=== PATIENT | male | born 1980 | race Caucasian/White ===

== ENCOUNTER 2017-05-16 12:57 | Emergency (ER) | payer MEDICAID, OTHER ==
--- NOTE | 2017-05-16 13:32 | EDM.PDOC ---
ED HPI GENERAL MEDICAL PROBLEM - General Chief Complaint: Gastrointestinal Problem Stated Complaint: LIGHTHEADED/VOMITING/R ARM IS NUMB Time Seen by Provider: 05/16/17 13:31 Source of Information: Reports: Patient - History of Present Illness INITIAL COMMENTS - FREE TEXT/NARRATIVE: Patient is here today for with his Melissa for evaluation of episode of lightheadedness and vomiting this morning. He states that he [place] completely normal approximately 8 AM when he woke up. States that he did try to eat some chips around 9 AM and felt nauseous and vomited. He does note some occasional right hand pain/numbness as well. He reports that this is been happening intermittently over the last 10 years on approximately 4-5 occasions. He denies any chronic medical conditions, does not take any medications on a daily basis and has no known allergies. He states that he has a soda every now and then, denies any drug use though he does drink approximately a 12 pack of [employer]ors original daily. Patient reports last episode of vomiting was approximately 10:30 AM, he has not had anything to eat or drink since then. He denies any current nausea or any pain. Does feel that he is quite hungry. - Related Data Allergies Allergy/AdvReac Type Severity Reaction Status Date / Time No Known Allergies Allergy Verified 09/27/16 17:04 Home Meds: Home Meds Meclizine [Antivert] 25 mg PO TID PRN #20 tablet 09/27/16 [Rx] Ondansetron [Zofran ODT] 4 mg PO Q8H PRN #20 tab.dis 09/27/16 [Rx] Past Medical History HEENT History: Reports: Impaired Vision - Past Surgical History GI Surgical History: Reports: Appendectomy Musculoskeletal Surgical History: Reports: Other (See Below) Social & Family History - Family History Family Medical History: Noncontributory - Tobacco Use Smoking Status *Q: Current Every Day Smoker Years of Tobacco use: 20 Packs/Tins Daily: 1 - Caffeine Use Caffeine Use: Reports: Coffee, Soda - Alcohol Use Days Per Week of Alcohol Use: 7 Number of Drinks Per Day: 12 Total Drinks Per Week: 84 - Recreational Drug Use Recreational Drug Use: No ED ROS GENERAL - Review of Systems Review Of Systems: See Below Constitutional: Reports: Weakness, Fatigue. Denies: Diaphoresis Respiratory: Reports: No Symptoms, Shortness of Breath, Wheezing, Cough Cardiovascular: Reports: No Symptoms, Chest Pain, Blood Pressure Problem Endocrine: Reports: Fatigue GI/Abdominal: Reports: Nausea, Vomiting. Denies: Abdominal Pain, Constipation, Diarrhea : Reports: No Symptoms Musculoskeletal: Reports: No Symptoms Skin: Reports: No Symptoms Neurological: Reports: Numbness (Right arm), Other Psychiatric: Reports: No Symptoms ED EXAM, GI/ABD - Physical Exam Exam: See Below Exam Limited By: No Limitations General Appearance: Alert, WD/WN, No Apparent Distress Ears: Normal External Exam, Normal Canal, Hearing Grossly Normal, Normal TMs Nose: Normal Inspection, Normal Mucosa Throat/Mouth: Normal Inspection, Normal Oropharynx Head: Atraumatic, Normocephalic Neck: Normal Inspection, Supple, Non-Tender, Full Range of Motion Respiratory/Chest: No Respiratory Distress, Wheezing (Mild scattered diffuse wheezing bilaterally.) Cardiovascular: Normal Peripheral Pulses, Regular Rate, Rhythm, No Edema, No Murmur GI/Abdominal: Normal Bowel Sounds, Soft, Non-Tender Back Exam: Normal Inspection, Full Range of Motion Extremities: Normal Inspection, Normal Range of Motion Neurological: Alert, Oriented, CN II-XII Intact, No Motor/Sensory Deficits Psychiatric: Normal Affect, Normal Mood Skin Exam: Warm, Dry, No Rash Course - Vital Signs Last Recorded V/S: Last Vital Signs Temp 97.7 F 05/16/17 13:06 Pulse 74 05/16/17 13:06 Resp 20 05/16/17 13:06 BP 155/94 H 05/16/17 13:06 Pulse Ox 95 05/16/17 13:06 - Orders/Labs/Meds Orders: Active Orders 24 hr Category Date Time Status CXR [Chest 2V] [CR] Stat Exams 05/16/17 13:53 Taken UA W/MICROSCOPIC [URIN] Stat Lab 05/16/17 15:40 Received Labs: Laboratory Tests 05/16/17 05/16/17 05/16/17 Range/Units 14:25 14:25 14:25 WBC 10.85 H (4.23-9.07) K/mm3 RBC 5.81 (4.63-6.08) M/mm3 Hgb 18.4 H (13.7-17.5) gm/L Hct 52.7 H (40.1-51.0) % MCV 90.7 (79.0-92.2) fl MCH 31.7 (25.7-32.2) pg MCHC 34.9 (32.2-35.5) g/dl RDW Std Deviation 41.8 (35.1-43.9) fL Plt Count 172 (163-337) K/mm3 MPV 9.8 (9.4-12.3) fl Neutrophils % (Manual) 80 H (40-60) % Band Neutrophils % 0 (0-10) % Lymphocytes % (Manual) 16 L (20-40) % Atypical Lymphs % 0 % Monocytes % (Manual) 3 (2-10) % Eosinophils % (Manual) 1 (0.8-7.0) % Basophils % (Manual) 0 L (0.2-1.2) Platelet Estimate Adequate Plt Morphology Comment Normal RBC Morph Comment Normal Sodium 138 (136-145) mEq/L Potassium 4.0 (3.5-5.1) mEq/L Chloride 103 (98-107) mEq/L Carbon Dioxide 25 (21-32) mEq/L Anion Gap 14.0 (5-15) BUN 9 (7-18) mg/dL Creatinine 1.0 (0.7-1.3) mg/dL Est Cr Clr Drug Dosing TNP Estimated GFR (MDRD) > 60 (>60) mL/min BUN/Creatinine Ratio 9.0 L (14-18) Glucose 103 (74-106) mg/dL Calcium 9.0 (8.5-10.1) mg/dL Total Bilirubin 1.7 H (0.2-1.0) mg/dL AST 54 H (15-37) U/L ALT 70 H (16-63) U/L Alkaline Phosphatase 53 (46-116) U/L C-Reactive Protein < 0.2 (<1.0) mg/dL Total Protein 7.7 (6.4-8.2) g/dl Albumin 4.2 (3.4-5.0) g/dl Globulin 3.5 gm/dL Albumin/Globulin Ratio 1.2 (1-2) Lipase 261 (73-393) U/L H. pylori IgG Antibody Negative (NEGATIVE) Meds: Medications Discontinued Medications Generic Name Dose Route Start Last Admin Trade Name Freq PRN Reason Stop Dose Admin Al Hydroxide/Mg Hydroxide 30 0 ml 05/16/17 15:21 05/16/17 15:31 ml/ Lidocaine HCl 15 ml PO 05/16/17 15:22 45 ml ONETIME ONE Administration - Re-Assessments/Exams Free Text/Narrative Re-Assessment/Exam: Patient's hand numbness resolved with exercise and stretching. He noticed mild improvement in his throat fullness and burning with the GI cocktail. He does note the nausea has resolved. He tolerated water well will try onelia crackers. WBC 10,850, hemoglobin elevated at 18.4. He is a smoker. Bilirubin is 1.7, AST 54 ALTs 70. Lipase 261 and CRP <0.2. Chest x-ray was unremarkable, official report is pending. I suspect much of patient's occasional dizziness and esophageal fullness is related to his excessive alcohol consumption. I did discuss with him significantly cutting back or even better to quit drinking alcohol altogether, patient does feel that this is a reasonable goal for him. With the significant fullness in his esophagus and a lot of drinking I do think that EGD is indicated and will schedule him with surgery for this. Will follow-up with him in the clinic 2-3 days after his EGD or certainly sooner if needed. 05/16/17 15:53 Departure - Departure Time of Disposition: 16:38 Disposition: Home, Self-Care 01 Condition: Good Clinical Impression: Dizziness, Excessive drinking alcohol Dysphagia Qualifiers: Dysphagia type: unspecified Qualified Code(s): R13.10 - Dysphagia, unspecified - Discharge Information Instructions: Dehydration, Adult, [id number] Referrals: PCP,None [Primary Care Provider] - Forms: ED Department Discharge Additional Instructions: You need to stop drinking alcohol. Eat balanced diet Call [phone] to schedule your EGD consult with Dr Cowan. Follow-up with Hilary Howell 1 week after procedure. You may return to ER if needed. - My Orders Last 24 Hours: My Active Orders 05/16/17 13:53 CXR [Chest 2V] [CR] Stat 05/16/17 15:40 UA W/MICROSCOPIC [URIN] Stat - Assessment/Plan Last 24 Hours: My Active Orders 05/16/17 13:53 CXR [Chest 2V] [CR] Stat 05/16/17 15:40 UA W/MICROSCOPIC [URIN] Stat
[2017-05-16] MEDS ORDERED: Alum Hydrox/Mag Hydrox/Simeth 30 ML, Lidocaine 2% 15 ML PO ONE ×2 (15:21)
[2017-05-16 16:45] VITALS: BP 143/90
--- NOTE | 2017-05-20 13:35 | CR ---
Chest: 2 views of the chest were obtained. Comparison: Previous chest x-ray of 09/27/16. Heart size and mediastinum are within normal limits. Lungs are clear. Bony structures are unremarkable. Impression: 1. Nothing acute is seen on 2 view chest x-ray. Diagnostic code #1
== END 2017-05-16 16:45 | disposition home or self-care (01) ==
LOC: JD.ED 12:57
DX: R42 Dizziness and giddiness (principal); R13.10 Dysphagia, unspecified; F10.10 Alcohol abuse, uncomplicated; F17.210 Nicotine dependence, cigarettes, uncomplicated; Z90.49 Acquired absence of other specified parts of digestive tract
CPT/HCPCS: 36415; 71020; 80053; 81001; 83690; 85025; 86140; 86677; 99284; A9270; 99283

== ENCOUNTER 2017-10-09 20:51 | Emergency (ER) | payer MEDICAID ==
[2017-10-09] MEDS ORDERED: Sodium Chloride 0.9% 2,000 ML IV ONE (21:22)
[2017-10-09] MEDS ORDERED: Ondansetron 4 MG/2 ML SDV IVPUSH ONE (21:22)
[2017-10-09] MEDS ORDERED: Sodium Chloride 0.9% 10 ML Syringe FLUSH PRN (21:22)
[2017-10-09] MEDS ORDERED: Pantoprazole 40 MG Vial IVPUSH ONE (21:22)
[2017-10-09] MEDS ORDERED: LORazepam 2 MG/ML MDV IVPUSH ONE (21:22)
[2017-10-09] MEDS ORDERED: HYDROmorphone 0.5 MG/0.5 ML Syringe IVPUSH ONE (21:25)
--- NOTE | 2017-10-09 21:28 | EDM.PDOC ---
ED HPI GENERAL MEDICAL PROBLEM - General Chief Complaint: Gastrointestinal Problem Stated Complaint: VOMITING Time Seen by Provider: 10/09/17 21:10 Source of Information: Reports: Patient History Limitations: Reports: No Limitations - History of Present Illness INITIAL COMMENTS - FREE TEXT/NARRATIVE: Patient is a 36-year-old male who presents to the ED complaining of nausea/ vomiting, dizziness, weakness, and pain to his epigastric region. Patient states he awoke this morning with sudden onset of vomiting approximately 7:00. States the vomiting and abdominal discomfort have progressively gotten worse throughout the course of the day. He has been unable to eat any food although has been trying to drink plenty of water. States at approximately 1500 hrs. today he was feeling better. Approximately half-hour prior to arrival to the ED he started feeling bad again. He is feeling lightheaded with admission to the ED. Stomach discomfort described as a dull achy constant sensation that is localized. Patient does smoke one pack per day plus. Complains of some intermittent cough and chest tightness with expiratory wheezing present. Denies any acid reflux, fever/chills, diarrhea, chest pain, shortness of breath, sore throat, or recent sick contacts. States this happens about three times a year. Denies history of bleeding ulcers, blood in his stool, and or pancreatitis. He does admit to drinking 8-10 beers a day. Denies any recreational drug use. - Related Data Allergies Allergy/AdvReac Type Severity Reaction Status Date / Time No Known Allergies Allergy Verified 10/09/17 21:00 Home Meds: Home Meds Ondansetron [Zofran ODT] 4 mg PO Q6H PRN #10 tab.dis 10/09/17 [Rx] Propranolol [Inderal LA] 60 mg PO DAILY #10 cap.er 10/09/17 [Rx] chlordiazePOXIDE [Librium] 25 mg PO ASDIRECTED #18 cap 10/09/17 [Rx] Past Medical History HEENT History: Reports: Impaired Vision - Past Surgical History GI Surgical History: Reports: Appendectomy Social & Family History - Family History Family Medical History: Noncontributory - Tobacco Use Smoking Status *Q: Current Every Day Smoker Years of Tobacco use: 15 Packs/Tins Daily: 1 - Caffeine Use Caffeine Use: Reports: Coffee, Soda - Alcohol Use Days Per Week of Alcohol Use: 7 Number of Drinks Per Day: 12 Total Drinks Per Week: 84 - Recreational Drug Use Recreational Drug Use: No ED ROS GENERAL - Review of Systems Review Of Systems: ROS reveals no pertinent complaints other than HPI. ED EXAM, GI/ABD - Physical Exam Exam: See Below Exam Limited By: No Limitations General Appearance: Alert, WD/WN, Mild Distress Ears: Hearing Grossly Normal Nose: Normal Inspection Throat/Mouth: Normal Voice, No Airway Compromise, Other (Dry oromucosa) Neck: Normal Inspection, Supple Respiratory/Chest: No Respiratory Distress, No Accessory Muscle Use, Chest Non- Tender, Other (Few expiratory wheezes to the apices) Cardiovascular: Normal Peripheral Pulses, Regular Rate, Rhythm, No Murmur GI/Abdominal Exam: Normal Bowel Sounds, Soft, No Organomegaly, No Distention, Tender (Mild tenderness noted epigastric region) Back Exam: Normal Inspection. No: CVA Tenderness (L), CVA Tenderness (R) Extremities: Normal Inspection, Non-Tender, No Pedal Edema, Normal Capillary Refill Neurological: Alert, Oriented, CN II-XII Intact, No Motor/Sensory Deficits Psychiatric: Normal Affect, Anxious Skin Exam: Warm, Dry, Intact, Normal Color, No Rash Course - Vital Signs Last Recorded V/S: Last Vital Signs Temp 98.7 F 10/09/17 20:57 Pulse 57 L 10/09/17 23:40 Resp 16 10/09/17 23:40 BP 142/76 H 10/09/17 23:40 Pulse Ox 98 10/09/17 23:40 - Orders/Labs/Meds Labs: Laboratory Tests 10/09/17 10/09/17 10/09/17 Range/Units 21:35 21:35 21:35 WBC 8.50 (4.23-9.07) K/mm3 RBC 5.72 (4.63-6.08) M/mm3 Hgb 18.0 H (13.7-17.5) gm/L Hct 50.1 (40.1-51.0) % MCV 87.6 (79.0-92.2) fl MCH 31.5 (25.7-32.2) pg MCHC 35.9 H (32.2-35.5) g/dl RDW Std Deviation 38.8 (35.1-43.9) fL Plt Count 197 (163-337) K/mm3 MPV 9.8 (9.4-12.3) fl Neut % (Auto) 58.8 (34.0-67.9) % Lymph % (Auto) 25.2 (21.8-53.1) % [place] % (Auto) 14.9 H (5.3-12.2) % Eos % (Auto) 0.9 (0.8-7.0) Baso % (Auto) 0.1 (0.1-1.2) % Neut # (Auto) 4.99 (1.78-5.38) K/mm3 Lymph # (Auto) 2.14 (1.32-3.57) K/mm3 [place] # (Auto) 1.27 H (0.30-0.82) K/mm3 Eos # (Auto) 0.08 (0.04-0.54) K/mm3 Baso # (Auto) 0.01 (0.01-0.08) K/mm3 PT 10.6 (8.0-13.0) SECONDS INR 0.97 Sodium 136 (136-145) mEq/L Potassium 3.4 L (3.5-5.1) mEq/L Chloride 97 L (98-107) mEq/L Carbon Dioxide 27 (21-32) mEq/L Anion Gap 15.4 H (5-15) BUN 9 (7-18) mg/dL Creatinine 1.0 (0.7-1.3) mg/dL Est Cr Clr Drug Dosing 99.22 mL/min Estimated GFR (MDRD) > 60 (>60) mL/min BUN/Creatinine Ratio 9.0 L (14-18) Glucose 104 (74-106) mg/dL Calcium 10.2 H (8.5-10.1) mg/dL Total Bilirubin 1.8 H (0.2-1.0) mg/dL AST 30 (15-37) U/L ALT 43 (16-63) U/L Alkaline Phosphatase 47 (46-116) U/L C-Reactive Protein < 0.5 (<1.0) mg/dL Total Protein 7.7 (6.4-8.2) g/dl Albumin 4.3 (3.4-5.0) g/dl Globulin 3.4 gm/dL Albumin/Globulin Ratio 1.3 (1-2) Lipase 195 (73-393) U/L TSH 3rd Generation 7.217 H (0.358-3.74) uIU/mL Urine Color (Yellow) Urine Appearance (Clear) Urine pH (5.0-8.0) Ur Specific [place] (1.005-1.030) Urine Protein (Negative) Urine Glucose (UA) (Negative) Urine Ketones (Negative) Urine Occult Blood (Negative) Urine Nitrite (Negative) Urine Bilirubin (Negative) Urine Urobilinogen (0.2-1.0) Ur Leukocyte Esterase (Negative) Urine RBC (0-5) /hpf Urine WBC (0-5) /hpf Ur Epithelial Cells (0-5) /hpf Urine Bacteria (FEW) /hpf Urine Mucus (FEW) /hpf Urine Opiates Screen (NEGATIVE) Ur Buprenorphine Scrn (NEGATIVE) Ur Oxycodone Screen (NEGATIVE) Urine Methadone Screen (NEGATIVE) Ur Propoxyphene Screen (NEGATIVE) Ur Barbiturates Screen (NEGATIVE) Ur Tricyclics Screen (NEGATIVE) Ur Phencyclidine Scrn (NEGATIVE) Ur Amphetamine Screen (NEGATIVE) U Methamphetamines Scrn (NEGATIVE) U Benzodiazepines Scrn (NEGATIVE) U Cocaine Metab Screen (NEGATIVE) U Marijuana (THC) Screen (NEGATIVE) Ethyl Alcohol 0.00 (0.00) gm% 10/09/17 10/09/17 Range/Units 21:48 21:48 WBC (4.23-9.07) K/mm3 RBC (4.63-6.08) M/mm3 Hgb (13.7-17.5) gm/L Hct (40.1-51.0) % MCV (79.0-92.2) fl MCH (25.7-32.2) pg MCHC (32.2-35.5) g/dl RDW Std Deviation (35.1-43.9) fL Plt Count (163-337) K/mm3 MPV (9.4-12.3) fl Neut % (Auto) (34.0-67.9) % Lymph % (Auto) (21.8-53.1) % [place] % (Auto) (5.3-12.2) % Eos % (Auto) (0.8-7.0) Baso % (Auto) (0.1-1.2) % Neut # (Auto) (1.78-5.38) K/mm3 Lymph # (Auto) (1.32-3.57) K/mm3 [place] # (Auto) (0.30-0.82) K/mm3 Eos # (Auto) (0.04-0.54) K/mm3 Baso # (Auto) (0.01-0.08) K/mm3 PT (8.0-13.0) SECONDS INR Sodium (136-145) mEq/L Potassium (3.5-5.1) mEq/L Chloride (98-107) mEq/L Carbon Dioxide (21-32) mEq/L Anion Gap (5-15) BUN (7-18) mg/dL Creatinine (0.7-1.3) mg/dL Est Cr Clr Drug Dosing mL/min Estimated GFR (MDRD) (>60) mL/min BUN/Creatinine Ratio (14-18) Glucose (74-106) mg/dL Calcium (8.5-10.1) mg/dL Total Bilirubin (0.2-1.0) mg/dL AST (15-37) U/L ALT (16-63) U/L Alkaline Phosphatase (46-116) U/L C-Reactive Protein (<1.0) mg/dL Total Protein (6.4-8.2) g/dl Albumin (3.4-5.0) g/dl Globulin gm/dL Albumin/Globulin Ratio (1-2) Lipase (73-393) U/L TSH 3rd Generation (0.358-3.74) uIU/mL Urine Color Yellow (Yellow) Urine Appearance Clear (Clear) Urine pH 6.5 (5.0-8.0) Ur Specific [place] [address] [place] 1.010 (1.005-1.030) Urine Protein Negative (Negative) Urine Glucose (UA) Negative (Negative) Urine Ketones Negative (Negative) Urine Occult Blood Negative (Negative) Urine Nitrite Negative (Negative) Urine Bilirubin Negative (Negative) Urine Urobilinogen 0.2 (0.2-1.0) Ur Leukocyte Esterase Negative (Negative) Urine RBC 0-5 (0-5) /hpf Urine WBC 0-5 (0-5) /hpf Ur Epithelial Cells 0-5 (0-5) /hpf Urine Bacteria Not seen (FEW) /hpf Urine Mucus Not seen (FEW) /hpf Urine Opiates Screen Negative (NEGATIVE) Ur Buprenorphine Scrn Negative (NEGATIVE) Ur Oxycodone Screen Negative (NEGATIVE) Urine Methadone Screen Negative (NEGATIVE) Ur Propoxyphene Screen Negative (NEGATIVE) Ur Barbiturates Screen Negative (NEGATIVE) Ur Tricyclics Screen Negative (NEGATIVE) Ur Phencyclidine Scrn Negative (NEGATIVE) Ur Amphetamine Screen Negative (NEGATIVE) U Methamphetamines Scrn Negative (NEGATIVE) U Benzodiazepines Scrn Negative (NEGATIVE) U Cocaine Metab Screen Negative (NEGATIVE) U Marijuana (THC) Screen Negative (NEGATIVE) Ethyl Alcohol (0.00) gm% Meds: Medications Discontinued Medications Generic Name Dose Route Start Last Admin Trade Name Freq PRN Reason Stop Dose Admin Hydromorphone HCl 0.5 mg 10/09/17 21:25 10/09/17 21:47 Dilaudid IVPUSH 10/09/17 21:26 0.5 mg ONETIME ONE Administration Sodium Chloride 2,000 mls @ 999 mls/hr 10/09/17 21:22 10/09/17 21:47 Normal Saline IV 10/09/17 23:22 999 mls/hr ONETIME ONE Administration Lorazepam 1 mg 10/09/17 21:22 10/09/17 21:47 Ativan IVPUSH 10/09/17 21:23 1 mg ONETIME ONE Administration Metoclopramide HCl 7.5 mg 10/09/17 22:28 10/09/17 22:38 Reglan IVPUSH 10/09/17 22:29 7.5 mg ONETIME ONE Administration Ondansetron HCl 4 mg 10/09/17 21:22 10/09/17 21:47 Zofran IVPUSH 10/09/17 21:23 4 mg ONETIME ONE Administration Pantoprazole Sodium 40 mg 10/09/17 21:22 10/09/17 21:47 Protonix Iv IVPUSH 10/09/17 21:23 40 mg ONETIME ONE Administration Sodium Chloride 10 ml 10/09/17 21:22 10/09/17 21:46 Saline Flush FLUSH 10 ml ASDIRECTED PRN Administration Keep Vein Open - Re-Assessments/Exams Free Text/Narrative Re-Assessment/Exam: IV established with Ativan 1 mg IVP, Zofran 4 mg IVP, Protonix 40 mg IVP, Dilaudid 0.5 mg IVP, and normal saline 2000 mL total. Initial labs and studies include CBC, chem 14, CRP, urine drug tox, serum EtOH, PT/INR, lipase, TSH, and UA. EKG, chest x-ray, and abdominal 2 view will be obtained as well. EKG: Sinus rhythm rate of 56 with possible LVH. No acute ST changes noted. Labs reviewed: CBC essentially normal. INR 0.97. Sodium 136, potassium 3.4 AG 13.4, creatinine 1.0, glucose 104, LFTs within normal limits, CRP less than 0.5 , lipase 195, TSH elevated at 7.217. Serum EtOH 0.00. Chest x-ray no acute abnormality is noted. Reviewed with Dr. Rivera. Final interpretation pending. X-ray of the abdomen revealed nonspecific air in stool pattern with questionable few air-fluid levels no sign of obstruction. Reviewed with Dr. Rivera. Final interpretation pending. 2220 reassessment, patient's pain resolved after ministered the Dilaudid. Subsequently shortly after receiving the Dilaudid patient became nauseated and vomited. UA was negative for any concerning findings. Urine drug tox was negative. Ordered Reglan 7.5 mg IVP for persistent nausea. 2300 Reassessment, vital signs are stable. Patients nausea is subsiding. Dizziness persists but improving. Once IV fluids are in will prepare for discharge home. Discussed patient with Dr. Perez he will take over care since I will be leaving. Believe symptoms maybe associated with alcohol induced gastritis vs gastrointenstinal viral infection vs alcohol withdraw. Patients symptoms have resolved with the above therapies.Patient is wishing to have medications to help with withdraw from alcohol. He wants help with alcohol abuse. Thus will prescribe appropriate medication for alcohol withdraw with referral information for PCP and treatment options. Departure - Departure Time of Disposition: 23:40 Disposition: Home, Self-Care 01 Condition: Fair Clinical Impression: Vomiting, Abdominal pain, Elevated TSH Gastritis Qualifiers: Gastritis type: unspecified gastritis Chronicity: acute Gastritis bleeding: without bleeding Qualified Code(s): K29.00 - Acute gastritis without bleeding - Discharge Information Prescriptions: chlordiazePOXIDE [Librium] 25 mg PO ASDIRECTED #18 cap Ondansetron [Zofran ODT] 4 mg PO Q6H PRN #10 tab.dis PRN Reason: Nausea/Vomiting Propranolol [Inderal LA] 60 mg PO DAILY #10 cap.er Instructions: Viral Gastroenteritis, Adult, [id number], Nausea and Vomiting, Adult, [id number], Abdominal Pain, Adult, [id number] Referrals: Merly Osborn [Physician] - [facility] [Outside] Ramu Dickens LAC [Licensed Counselor] - Forms: ED Department Discharge, ED Return to Work/School Form Additional Instructions: As discussed discomfort may be associated with alcohol-induced gastritis, alcohol withdraw, and/or viral gastrointestinal infection. Treatment at this point will include Zofran 4 mg every 6 hours as needed for nausea and vomiting. Prilosec 40mg every am 1/2 hr prior to eating for two weeks and then 20mg everyday thereafter for 1 month. Push the fluids including: Gatorade, Powerade, and/orwater. Stick with liquid diet for the next 24 hours advancing to a bland diet thereafter for the next 2 days. If able to keep food down advance to normal diet. Refrain from alcohol use. For alcohol withdraws will have you take librium and inderal as prescribed. Follow-up with a primary care provider at [facility] in [place] for reevaluation if symptoms persist. Seek alcohol treatment with Ramu Dickens or [facility]. No driving this evening since receiving a sedative medication while in the E.D. TSH was also elevated which is concerning for hypothyroidism. Please follow up with PCP for further diagnostic testing.
[2017-10-09] MEDS ORDERED: Metoclopramide 10 MG/2 ML SDV IVPUSH ONE (22:28)
[2017-10-09 23:41] VITALS: BP 142/76
--- NOTE | 2017-10-10 06:46 | CR ---
Abdominal series: Supine and upright views of the abdomen were obtained as well as frontal view of the chest. Comparison: Prior chest x-ray of 05/16/17. Heart size and mediastinum are within normal limits. Lungs are clear with no acute infiltrates. Calcifications are seen within the pelvis compatible with phleboliths. Anastomotic sutures are seen within the right abdomen. Bowel gas pattern is normal. No free air is seen. Impression: 1. Incidental findings. Nothing acute is identified on abdominal ultrasound exam. Diagnostic code #1
== END 2017-10-09 23:40 | disposition home or self-care (01) ==
LOC: JD.ED 20:51
DX: K29.00 Acute gastritis without bleeding (principal); R94.6 Abnormal results of thyroid function studies; F17.210 Nicotine dependence, cigarettes, uncomplicated; Z79.899 Other long term (current) drug therapy
CPT/HCPCS: 36415; 74022; 80053; 80306; 81001; 83690; 84443; 85025; 85610; 86140; 93005; 96361; 96374; 96375; 99284; C9113; G0480; J1170; J2060; J2405; J2765; J7040; J7050; 93010; 99285

== ENCOUNTER 2017-10-28 22:59 | Emergency (ER) | payer MEDICAID ==
[2017-10-28 23:10] VITALS: BP 142/95
[2017-10-28] MEDS ORDERED: Sodium Chloride 0.9% 10 ML Syringe FLUSH PRN (23:41)
[2017-10-28] MEDS ORDERED: Metoclopramide 10 MG/2 ML SDV IVPUSH ONE (23:42)
[2017-10-28] MEDS ORDERED: Ketorolac 30 MG/ML SDV IVPUSH ONE (23:43)
[2017-10-28] MEDS ORDERED: diphenhydrAMINE 50 MG/ML SDV IVPUSH ONE (23:43)
[2017-10-28] MEDS ORDERED: Sodium Chloride 0.9% 1,000 ML IV SCH (23:45)
[2017-10-29] MEDS ORDERED: Acetaminophen/HYDROcodone 325-5 MG Tab PO ONE (01:42)
--- NOTE | 2017-10-29 01:45 | EDM.PDOC ---
ED HPI GENERAL MEDICAL PROBLEM - General Chief Complaint: Headache Stated Complaint: dizzy headache Time Seen by Provider: 10/28/17 23:35 Source of Information: Reports: Patient History Limitations: Reports: No Limitations - History of Present Illness INITIAL COMMENTS - FREE TEXT/NARRATIVE: The patient presents with a headache. This started yesterday. It comes form his neck. He is also lightheaded. This has happened many times. He has been seen here before. They only thing that came back abnormal was his TSH. It always has been elevated. It was 7 last time. He denies fever, chills, cough, chest pain, shortness of breath, numbness or weakness. He did have some nausea earlier. He took some aspirin but that did not help. He usually does not have a headache when he gets lightheaded. That is why he came in. Onset: Gradual Duration: Day(s): (Yesterday) Location: Reports: Head Quality: Reports: Ache Severity: Moderate Improves with: Reports: None Worsens with: Reports: None Associated Symptoms: Reports: Headaches, Nausea/Vomiting. Denies: Chest Pain, Fever/Chills, Loss of Appetite, Shortness of Breath Headache Pain Score (Numeric/FACES): 6 - Related Data Allergies Allergy/AdvReac Type Severity Reaction Status Date / Time hydromorphone [From Dilaudid] Allergy Vomiting Verified 10/28/17 23:11 Home Meds: Home Meds . [No Known Home Meds] 10/28/17 [History] Past Medical History HEENT History: Reports: Impaired Vision Psychiatric History: Reports: Anxiety - Infectious Disease History Infectious Disease History: Reports: Chicken Pox - Past Surgical History GI Surgical History: Reports: Appendectomy Musculoskeletal Surgical History: Reports: Other (See Below) Other Musculoskeletal Surgeries/Procedures:: right ankle Social & Family History - Family History Family Medical History: Noncontributory - Tobacco Use Smoking Status *Q: Former Smoker Years of Tobacco use: 20 Packs/Tins Daily: 1 Used Tobacco, but Quit: No - Caffeine Use Caffeine Use: Reports: None - Alcohol Use Days Per Week of Alcohol Use: 7 Number of Drinks Per Day: 12 Total Drinks Per Week: 84 - Recreational Drug Use Recreational Drug Use: No ED ROS GENERAL - Review of Systems Review Of Systems: See Below Constitutional: Reports: No Symptoms HEENT: Reports: No Symptoms Respiratory: Reports: No Symptoms Cardiovascular: Reports: Lightheadedness. Denies: Chest Pain Endocrine: Reports: No Symptoms GI/Abdominal: Reports: Nausea. Denies: Abdominal Pain, Vomiting : Reports: No Symptoms Musculoskeletal: Reports: Neck Pain Skin: Reports: No Symptoms Neurological: Reports: Headache - Physical Exam Exam: See Below Exam Limited By: No Limitations General Appearance: Alert, No Apparent Distress Eye Exam: Bilateral Eye: EOMI, PERRL Ears: Normal External Exam Nose: Normal Inspection Throat/Mouth: Normal Inspection Head Exam: Atraumatic, Normocephalic Neck: Normal Inspection Respiratory/Chest: No Respiratory Distress, Lungs Clear, Normal Breath Sounds Cardiovascular: Regular Rate, Rhythm, No Edema, No Murmur GI/Abdominal: Soft, Non-Tender, No Organomegaly, No Mass Neuro Exam (Abbreviated): Alert, Oriented, No Motor/Sensory Deficits EKG INTERPRETATION EKG Date: 10/28/17 Time: 23:52 Rhythm: Other (Sinus bradycardia) Rate (Beats/Min): 49 [place]: Normal P-Wave: Present QRS: Normal ST-T: Normal QT: Normal Course - Vital Signs Last Recorded V/S: Last Vital Signs Temp 97.6 F 10/28/17 23:07 Pulse 55 L 10/28/17 23:07 Resp 18 10/28/17 23:07 BP 142/95 H 10/28/17 23:07 Pulse Ox 98 10/28/17 23:07 - Orders/Labs/Meds Orders: Active Orders 24 hr Category Date Time Status Cardiac Monitoring [RC] . DIRECTED Care 10/28/17 23:41 Active EKG Documentation Completion [RC] STAT Care 10/28/17 23:41 Active Holter Monitor 48 Hours [RC] .PRN Care 10/29/17 01:39 Ordered Peripheral IV Care [RC] . DIRECTED Care 10/28/17 23:41 Active Head wo Cont [CT] Stat Exams 10/28/17 23:42 Taken FREE T3 [REF] Stat Lab 10/28/17 23:54 Received Sodium Chloride 0.9% [Normal Saline] 1,000 ml Med 10/28/17 23:45 Active IV ASDIRECTED Sodium Chloride 0.9% [Saline Flush] Med 10/28/17 23:41 Active 10 ml FLUSH ASDIRECTED PRN Peripheral IV Insertion Adult [OM.PC] Stat Oth 12/24/17 23:41 Ordered Medication Orders Sodium Chloride (Normal Saline) 1,000 mls @ 125 mls/hr IV ASDIRECTED MARY ANN Last Admin: 10/28/17 23:55 Dose: 125 mls/hr Sodium Chloride (Saline Flush) 10 ml FLUSH ASDIRECTED PRN PRN Reason: Keep Vein Open Last Admin: 10/28/17 23:55 Dose: 10 ml Labs: Laboratory Tests 10/28/17 10/28/17 Range/Units 23:54 23:54 WBC 8.83 (4.23-9.07) K/mm3 RBC 5.16 (4.63-6.08) M/mm3 Hgb 15.9 (13.7-17.5) gm/L Hct 46.1 (40.1-51.0) % MCV 89.3 (79.0-92.2) fl MCH 30.8 (25.7-32.2) pg MCHC 34.5 (32.2-35.5) g/dl RDW Std Deviation 39.3 (35.1-43.9) fL Plt Count 166 (163-337) K/mm3 MPV 10.1 (9.4-12.3) fl Neut % (Auto) 49.8 (34.0-67.9) % Lymph % (Auto) 35.9 (21.8-53.1) % Kerr % (Auto) 12.1 (5.3-12.2) % Eos % (Auto) 2.0 (0.8-7.0) Baso % (Auto) 0.1 (0.1-1.2) % Neut # (Auto) 4.39 (1.78-5.38) K/mm3 Lymph # (Auto) 3.17 (1.32-3.57) K/mm3 Kerr # (Auto) 1.07 H (0.30-0.82) K/mm3 Eos # (Auto) 0.18 (0.04-0.54) K/mm3 Baso # (Auto) 0.01 (0.01-0.08) K/mm3 Sodium 138 (136-145) mEq/L Potassium 3.4 L (3.5-5.1) mEq/L Chloride 100 (98-107) mEq/L Carbon Dioxide 28 (21-32) mEq/L Anion Gap 13.4 (5-15) BUN 9 (7-18) mg/dL Creatinine 1.0 (0.7-1.3) mg/dL Est Cr Clr Drug Dosing 98.28 mL/min Estimated GFR (MDRD) > 60 (>60) mL/min BUN/Creatinine Ratio 9.0 L (14-18) Glucose 90 (74-106) mg/dL Calcium 9.3 (8.5-10.1) mg/dL Magnesium 1.9 (1.8-2.4) mg/dl Total Bilirubin 1.7 H (0.2-1.0) mg/dL AST 26 (15-37) U/L ALT 36 (16-63) U/L Alkaline Phosphatase 45 L (46-116) U/L Troponin I < 0.017 (0.00-0.056) ng/mL Total Protein 6.9 (6.4-8.2) g/dl Albumin 3.8 (3.4-5.0) g/dl Globulin 3.1 gm/dL Albumin/Globulin Ratio 1.2 (1-2) Free T4 0.95 (0.76-1.46) ng/dL TSH 3rd Generation 5.116 H (0.358-3.74) uIU/mL Meds: Medications Generic Name Dose Route Start Last Admin Trade Name Freq PRN Reason Stop Dose Admin Sodium Chloride 1,000 mls @ 125 mls/hr 10/28/17 23:45 10/28/17 23:55 Normal Saline IV 125 mls/hr ASDIRECTED MARY ANN Administration Sodium Chloride 10 ml 10/28/17 23:41 10/28/17 23:55 Saline Flush FLUSH 10 ml ASDIRECTED PRN Administration Keep Vein Open Discontinued Medications Generic Name Dose Route Start Last Admin Trade Name Freq PRN Reason Stop Dose Admin Diphenhydramine HCl 50 mg 10/28/17 23:43 10/28/17 23:56 Benadryl IVPUSH 10/28/17 23:44 50 mg ONETIME ONE Administration Ketorolac Tromethamine 30 mg 10/28/17 23:43 10/28/17 23:58 Toradol IVPUSH 10/28/17 23:44 30 mg ONETIME ONE Administration Metoclopramide HCl 10 mg 10/28/17 23:42 10/28/17 23:55 Reglan IVPUSH 10/28/17 23:43 10 mg ONETIME ONE Administration - Re-Assessments/Exams Free Text/Narrative Re-Assessment/Exam: 10/29/17 01:45 I ordered an IV NS, toradol 30mg IV, benadryl 50mg IV, reglan 10mg IV, labs, EKG and a CT of his head. His CT shows nothing acute. His EKG shows a sinus bradycardia. His CBC and CMP look good. His troponin is negative. His TSH was elevated at 5.11. His free T4 was normal. His headache is better but not gone. I will give him a couple hydrocodone here and get him a holter monitor. His T4 was normal. I will have him follow up with his doctor about his thyroid. Departure - Departure Time of Disposition: 01:50 Disposition: Home, Self-Care 01 Condition: Good Clinical Impression: Elevated TSH, Lightheaded Headache Qualifiers: Headache type: tension-type Headache chronicity pattern: acute headache Intractability: not intractable Qualified Code(s): G44.209 - Tension-type headache, unspecified, not intractable - Discharge Information Referrals: PCP,None [Primary Care Provider] - Merly Osborn [Physician] - 1 Week Additional Instructions: Wear the holter monitor for 2 days. Get some rest today. Follow up with Dr Osborn in 1 week. Your TSH or thyroid stimulating hormone was up. That could be an indicator of low thyroid. Please return if you are worse. - My Orders Last 24 Hours: My Active Orders 10/28/17 23:41 Cardiac Monitoring [RC] . DIRECTED EKG Documentation Completion [RC] STAT Peripheral IV Care [RC] . DIRECTED Sodium Chloride 0.9% [Saline Flush] 10 ml FLUSH ASDIRECTED PRN Peripheral IV Insertion Adult [OM.PC] Stat 10/28/17 23:42 Head wo Cont [CT] Stat 10/28/17 23:45 Sodium Chloride 0.9% [Normal Saline] 1,000 ml IV ASDIRECTED 10/28/17 23:54 FREE T3 [REF] Stat 10/29/17 01:39 Holter Monitor 48 Hours [RC] .PRN - Assessment/Plan Last 24 Hours: My Active Orders 10/28/17 23:41 Cardiac Monitoring [RC] . DIRECTED EKG Documentation Completion [RC] STAT Peripheral IV Care [RC] . DIRECTED Sodium Chloride 0.9% [Saline Flush] 10 ml FLUSH ASDIRECTED PRN Peripheral IV Insertion Adult [OM.PC] Stat 10/28/17 23:42 Head wo Cont [CT] Stat 10/28/17 23:45 Sodium Chloride 0.9% [Normal Saline] 1,000 ml IV ASDIRECTED 10/28/17 23:54 FREE T3 [REF] Stat 10/29/17 01:39 Holter Monitor 48 Hours [RC] .PRN
--- NOTE | 2017-10-30 07:59 | CT ---
Head CT Technique: Multiple axial sections through the brain were obtained. Intravenous contrast was not utilized. Comparison: No previous intracranial imaging. Findings: Ventricles along with basal cisterns and sulci over the convexities are within normal limits for the patient's age. No abnormal parenchymal densities are seen. No evidence of intracranial hemorrhage. No midline shift or mass effect is seen. Bone window settings were reviewed which show no acute calvarial abnormality. Rounded soft tissue density is identified within the sphenoid sinus which measures approximately 1.8 cm which is felt compatible with incidental retention cyst. Impression: 1. No acute intracranial abnormality is seen. 2. Incidental retention cyst within the right sphenoid sinus. 3. No acute calvarial abnormality is identified. Diagnostic code #2 I agree with preliminary report issued by [facility] ([facility] report finalized on 10/29/17, 1:12 AM Central Time)
== END 2017-10-29 02:11 | disposition home or self-care (01) ==
LOC: JD.ED 22:59
DX: G44.209 Tension-type headache, unspecified, not intractable (principal); R94.6 Abnormal results of thyroid function studies; Z88.5 Allergy status to narcotic agent; Z87.891 Personal history of nicotine dependence
CPT/HCPCS: 36415; 70450; 80053; 83735; 84439; 84443; 84481; 84484; 85025; 93005; 93225; 93226; 96361; 96374; 96375; 99284; A9270; J1200; J1885; J2765; J7040; J7050; 93010

== ENCOUNTER 2017-12-05 22:24 | Observation (INO) | payer MEDICAID ==
[2017-12-05] MEDS ORDERED: Sodium Chloride 0.9% 10 ML Syringe FLUSH PRN (22:49)
[2017-12-05] MEDS ORDERED: Sodium Chloride 0.9% 1,000 ML IV SCH (23:00)
--- NOTE | 2017-12-05 23:00 | EDM.PDOCBH ---
ED HPI GENERAL MEDICAL PROBLEM - General Chief Complaint: Drug or Alcohol Abuse Stated Complaint: DETOX Time Seen by Provider: 12/05/17 22:47 Source of Information: Reports: Patient, Family, RN Notes Reviewed - History of Present Illness INITIAL COMMENTS - FREE TEXT/NARRATIVE: 37-year-old male has been brought in by spouse and other family members looking for help to help him stop drinking. He does have long-standing history of alcohol abuse and dependency. He lost his regular job about 2 years ago since that time he has gone from drinking after work to drinking throughout the day. He started drinking this morning around 6:30 AM which should be about 16 hours ago. He does drink about a case of beer daily with his last beer about one hour ago. He has had some difficulty with pancreatitis about 2 months ago but apparently that is not giving him much trouble right now. He states he does occasionally get sick with nausea vomiting but has not had that in the last day or 2 at least. At this time he is willing to get into some type of treatment program. His family does not believe this can be outpatient. They state that if he is home he will drink. He does drink for the most part every day. He states like he did go a couple of days without drinking back in October about a month ago but then did start right back up again. He denies blackouts, DTs or withdrawal seizures but then it also sounds like he has not really stopped drinking long enough to have those symptoms. - Related Data Allergies Allergy/AdvReac Type Severity Reaction Status Date / Time hydromorphone [From Dilaudid] Allergy Vomiting Verified 12/06/17 02:44 Home Meds: Home Meds . [No Known Home Meds] 10/28/17 [History] Past Medical History HEENT History: Reports: Impaired Vision Cardiovascular History: Reports: Hypertension Psychiatric History: Reports: Addiction, Anxiety - Infectious Disease History Infectious Disease History: Reports: Chicken Pox - Past Surgical History GI Surgical History: Reports: Appendectomy Musculoskeletal Surgical History: Reports: Other (See Below) Other Musculoskeletal Surgeries/Procedures:: right ankle Social & Family History - Family History Family Medical History: Noncontributory - Tobacco Use Smoking Status *Q: Current Every Day Smoker Years of Tobacco use: 20 Packs/Tins Daily: 1.5 Used Tobacco, but Quit: No - Caffeine Use Caffeine Use: Reports: None - Alcohol Use Days Per Week of Alcohol Use: 7 Number of Drinks Per Day: 24 Total Drinks Per Week: 168 Date of Last Drink: 12/05/17 Time of Last Drink: 21:00 - Recreational Drug Use Recreational Drug Use: No ED ROS GENERAL - Review of Systems Review Of Systems: See Below Constitutional: Reports: Decreased Appetite. Denies: Fever, Chills HEENT: Denies: Throat Pain Respiratory: Denies: Shortness of Breath, Wheezing, Pleuritic Chest Pain Cardiovascular: Denies: Chest Pain GI/Abdominal: Reports: Vomiting (Occasional vomiting but none yesterday or today ). Denies: Abdominal Pain (No abdominal pain at this time), Nausea Musculoskeletal: Reports: No Symptoms Skin: Reports: No Symptoms Neurological: Reports: Dizziness. Denies: Trouble Speaking ED EXAM, BEHAVIORAL HEALTH - Physical Exam Exam: See Below General Appearance: Alert, No Apparent Distress Throat/Mouth: Normal Inspection Head: No: Facial Swelling Neck: Supple, Full Range of Motion Respiratory/Chest: No Respiratory Distress, Lungs Clear, Normal Breath Sounds Cardiovascular: Regular Rate, Rhythm GI/Abdominal: Soft, Non-Tender. No: Guarding Back Exam: No: CVA Tenderness (L), CVA Tenderness (R) Extremities: Normal Inspection, Normal Range of Motion Neurological: Alert, Other (At least moderately intoxicated, cooperative with exam, answering questions appropriately) Psychiatric: Alert COURSE, BEHAVIORAL HEALTH COMP - Course Vital Signs: Last Vital Signs Temp 98.4 F 12/05/17 22:35 Pulse 95 12/05/17 22:35 Resp 12 12/05/17 22:35 BP 165/92 H 12/05/17 22:35 Pulse Ox 96 12/05/17 22:35 Orders, Labs, Meds: Active Orders 24 hr Category Date Time Status Peripheral IV Care [RC] Q2HR Care 12/05/17 22:49 Active Sodium Chloride 0.9% [Normal Saline] 1,000 ml Med 12/05/17 23:00 Active IV ONETIME Sodium Chloride 0.9% [Normal Saline] 1,000 ml Med 12/06/17 01:30 Active IV ONETIME Sodium Chloride 0.9% [Saline Flush] Med 12/05/17 22:49 Active 10 ml FLUSH ASDIRECTED PRN Peripheral IV Insertion Adult [OM.PC] Stat Oth 12/05/17 22:48 Ordered Medication Orders Albuterol/Ipratropium (Duoneb 3.0-0.5 Mg/3 Ml) 3 ml NEB Q4H PRN PRN Reason: Shortness Of Breath/wheezing Bisacodyl (Dulcolax) 5 mg PO DAILY PRN PRN Reason: Constipation Chlordiazepoxide HCl (Librium) 25 mg PO Q8H PRN PRN Reason: Withdrawal Symptoms Clonidine HCl (Catapres) 0.1 mg PO Q4H PRN PRN Reason: Agitation Docusate Sodium (Colace) 100 mg PO BID PRN PRN Reason: Constipation Folic Acid (Folic Acid) 1 mg PO DAILY [facility] Stop: 12/08/17 09:01 Hydralazine HCl (Apresoline) 20 mg IVPUSH Q4H PRN PRN Reason: Hypertension Sodium Chloride (Normal Saline) 1,000 mls @ 999 mls/hr IV ONETIME [facility] Last Admin: 12/05/17 23:03 Dose: 999 mls/hr Sodium Chloride (Normal Saline) 1,000 mls @ 999 mls/hr IV ONETIME [facility] Promethazine HCl 12.5 mg/ (Sodium Chloride) 50.5 mls @ 100 mls/hr IV Q6H PRN PRN Reason: Nausea/Vomiting Dextrose/Sodium Chloride (Dextrose 5%-Normal Saline) 1,000 mls @ 125 mls/hr IV ASDIRECTED [facility] Potassium Chloride 10 meq/ (Premix) 100 mls @ 100 mls/hr IV Q1H [facility] Stop: 12/06/17 06:29 Ibuprofen (Motrin) 600 mg PO Q6H PRN PRN Reason: Pain (moderate 4-6) Lorazepam (Ativan) 2 mg IVPUSH Q4H PRN PRN Reason: Seizures Lorazepam (Ativan) 0 mg IVPUSH Q4H PRN; Protocol PRN Reason: Withdrawal Symptoms Magnesium Sulfate (Pharmacy To Dose - Magnesium Replacement) 1 dose .XX ASDIRECTED [facility] Metoprolol Tartrate (Lopressor) 5 mg IVPUSH Q4H PRN PRN Reason: Tachycardia Morphine Sulfate (Morphine) 2 mg IVPUSH Q4H PRN PRN Reason: Pain Multivitamins (Thera) 1 each PO DAILY [facility] Nicotine (Habitrol) 21 mg TRDERM DAILY [facility] Ondansetron HCl (Zofran) 4 mg IV Q6H PRN PRN Reason: Nausea/Vomiting Oxycodone HCl (Oxycodone) 5 mg PO Q4H PRN PRN Reason: Pain (moderate 4-6) Pantoprazole Sodium (Protonix Iv) 40 mg IV Q12HR MARY ANN Stop: 12/08/17 09:00 Pantoprazole Sodium (Protonix Iv) 40 mg .XX ONETIME ONE Stop: 12/06/17 01:58 Polyethylene Glycol (Miralax) 17 gm PO DAILY PRN PRN Reason: Constipation Potassium Chloride (Pharmacy To Dose - Potassium Replacement) 1 dose .XX ASDIRECTED MARY ANN Quetiapine Fumarate (Seroquel) 50 mg PO ONETIME ONE Stop: 12/06/17 02:05 Quetiapine Fumarate (Seroquel) 50 mg PO BEDTIME MARY ANN Senna/Docusate Sodium (Senna Plus) 1 tab PO BID PRN PRN Reason: Constipation Sodium Chloride (Saline Flush) 10 ml FLUSH ASDIRECTED PRN PRN Reason: Keep Vein Open Last Admin: 12/05/17 23:05 Dose: 10 ml Thiamine HCl (Vitamin B-1) 100 mg PO DAILY [facility] Topiramate (Topamax) 25 mg PO NOW STA Stop: 12/06/17 02:05 Topiramate (Topamax) 25 mg PO BID [facility] Laboratory Tests 12/05/17 12/05/17 12/05/17 Range/Units 23:02 23:02 23:02 WBC 8.24 (4.23-9.07) K/mm3 RBC 5.70 (4.63-6.08) M/mm3 Hgb 18.0 H (13.7-17.5) gm/L Hct 50.5 (40.1-51.0) % MCV 88.6 (79.0-92.2) fl MCH 31.6 (25.7-32.2) pg MCHC 35.6 H (32.2-35.5) g/dl RDW Std Deviation 42.7 (35.1-43.9) fL Plt Count 166 (163-337) K/mm3 MPV 10.0 (9.4-12.3) fl Neut % (Auto) 43.5 (34.0-67.9) % Lymph % (Auto) 42.4 (21.8-53.1) % [place] % (Auto) 10.3 (5.3-12.2) % Eos % (Auto) 3.2 (0.8-7.0) Baso % (Auto) 0.5 (0.1-1.2) % Neut # (Auto) 3.59 (1.78-5.38) K/mm3 Lymph # (Auto) 3.49 (1.32-3.57) K/mm3 [place] # (Auto) 0.85 H (0.30-0.82) K/mm3 Eos # (Auto) 0.26 (0.04-0.54) K/mm3 Baso # (Auto) 0.04 (0.01-0.08) K/mm3 Sodium 140 (136-145) mEq/L Potassium 3.2 L (3.5-5.1) mEq/L Chloride 104 (98-107) mEq/L Carbon Dioxide 22 (21-32) mEq/L Anion Gap 17.2 H (5-15) BUN 8 (7-18) mg/dL Creatinine 0.9 (0.7-1.3) mg/dL Est Cr Clr Drug Dosing 111.38 mL/min Estimated GFR (MDRD) > 60 (>60) mL/min BUN/Creatinine Ratio 8.9 L (14-18) Glucose 162 H (74-106) mg/dL Calcium 8.9 (8.5-10.1) mg/dL Total Bilirubin 1.2 H (0.2-1.0) mg/dL AST 49 H (15-37) U/L ALT 58 (16-63) U/L Alkaline Phosphatase 71 (46-116) U/L Total Protein 7.5 (6.4-8.2) g/dl Albumin 4.0 (3.4-5.0) g/dl Globulin 3.5 gm/dL Albumin/Globulin Ratio 1.1 (1-2) Lipase 655 H (73-393) U/L Urine Opiates Screen (NEGATIVE) Ur Buprenorphine Scrn (NEGATIVE) Ur Oxycodone Screen (NEGATIVE) Urine Methadone Screen (NEGATIVE) Ur Propoxyphene Screen (NEGATIVE) Ur Barbiturates Screen (NEGATIVE) Ur Tricyclics Screen (NEGATIVE) Ur Phencyclidine Scrn (NEGATIVE) Ur Amphetamine Screen (NEGATIVE) U Methamphetamines Scrn (NEGATIVE) U Benzodiazepines Scrn (NEGATIVE) U Cocaine Metab Screen (NEGATIVE) U Marijuana (THC) Screen (NEGATIVE) Ethyl Alcohol 0.28 (0.00) gm% 12/05/17 Range/Units 23:45 WBC (4.23-9.07) K/mm3 RBC (4.63-6.08) M/mm3 Hgb (13.7-17.5) gm/L Hct (40.1-51.0) % MCV (79.0-92.2) fl MCH (25.7-32.2) pg MCHC (32.2-35.5) g/dl RDW Std Deviation (35.1-43.9) fL Plt Count (163-337) K/mm3 MPV (9.4-12.3) fl Neut % (Auto) (34.0-67.9) % Lymph % (Auto) (21.8-53.1) % [place] % (Auto) (5.3-12.2) % Eos % (Auto) (0.8-7.0) Baso % (Auto) (0.1-1.2) % Neut # (Auto) (1.78-5.38) K/mm3 Lymph # (Auto) (1.32-3.57) K/mm3 [place] # (Auto) (0.30-0.82) K/mm3 Eos # (Auto) (0.04-0.54) K/mm3 Baso # (Auto) (0.01-0.08) K/mm3 Sodium (136-145) mEq/L Potassium (3.5-5.1) mEq/L Chloride (98-107) mEq/L Carbon Dioxide (21-32) mEq/L Anion Gap (5-15) BUN (7-18) mg/dL Creatinine (0.7-1.3) mg/dL Est Cr Clr Drug Dosing mL/min Estimated GFR (MDRD) (>60) mL/min BUN/Creatinine Ratio (14-18) Glucose (74-106) mg/dL Calcium (8.5-10.1) mg/dL Total Bilirubin (0.2-1.0) mg/dL AST (15-37) U/L ALT (16-63) U/L Alkaline Phosphatase (46-116) U/L Total Protein (6.4-8.2) g/dl Albumin (3.4-5.0) g/dl Globulin gm/dL Albumin/Globulin Ratio (1-2) Lipase (73-393) U/L Urine Opiates Screen Negative (NEGATIVE) Ur Buprenorphine Scrn Negative (NEGATIVE) Ur Oxycodone Screen Negative (NEGATIVE) Urine Methadone Screen Negative (NEGATIVE) Ur Propoxyphene Screen Negative (NEGATIVE) Ur Barbiturates Screen Negative (NEGATIVE) Ur Tricyclics Screen Negative (NEGATIVE) Ur Phencyclidine Scrn Negative (NEGATIVE) Ur Amphetamine Screen Negative (NEGATIVE) U Methamphetamines Scrn Negative (NEGATIVE) U Benzodiazepines Scrn Negative (NEGATIVE) U Cocaine Metab Screen Negative (NEGATIVE) U Marijuana (THC) Screen Negative (NEGATIVE) Ethyl Alcohol (0.00) gm% Medications Generic Name Dose Route Start Last Admin Trade Name Freq PRN Reason Stop Dose Admin Albuterol/Ipratropium 3 ml 12/06/17 01:59 Duoneb 3.0-0.5 Mg/3 Ml NEB Q4H PRN Shortness Of Breath/wheezing Bisacodyl 5 mg 12/06/17 01:59 Dulcolax PO DAILY PRN Constipation Chlordiazepoxide HCl 25 mg 12/06/17 02:01 Librium PO Q8H PRN Withdrawal Symptoms Clonidine HCl 0.1 mg 12/06/17 02:01 Catapres PO Q4H PRN Agitation Docusate Sodium 100 mg 12/06/17 01:59 Colace PO BID PRN Constipation Folic Acid 1 mg 12/06/17 09:00 Folic Acid PO 12/08/17 09:01 DAILY MARY ANN Hydralazine HCl 20 mg 12/06/17 02:00 Apresoline IVPUSH Q4H PRN Hypertension Sodium Chloride 1,000 mls @ 999 mls/hr 12/05/17 23:00 12/05/17 23:03 Normal Saline IV 999 mls/hr ONETIME MARY ANN Administration Sodium Chloride 1,000 mls @ 999 mls/hr 12/06/17 01:30 Normal Saline IV ONETIME MARY ANN Promethazine HCl 12.5 mg/ 50.5 mls @ 100 mls/hr 12/06/17 01:57 Sodium Chloride IV Q6H PRN Nausea/Vomiting Dextrose/Sodium Chloride 1,000 mls @ 125 mls/hr 12/06/17 02:15 Dextrose 5%-Normal Saline IV ASDIRECTED [facility] Potassium Chloride 10 meq/ 100 mls @ 100 mls/hr 12/06/17 02:30 Premix IV 12/06/17 06:29 Q1H MARY ANN Ibuprofen 600 mg 12/06/17 01:57 Motrin PO Q6H PRN Pain (moderate 4-6) Lorazepam 2 mg 12/06/17 02:00 Ativan IVPUSH Q4H PRN Seizures Lorazepam 0 mg 12/06/17 02:00 Ativan IVPUSH Q4H PRN Withdrawal Symptoms Protocol Magnesium Sulfate 1 dose 12/06/17 02:00 Pharmacy To Dose - Magnesium Replacement .XX ASDIRECTED [facility] Metoprolol Tartrate 5 mg 12/06/17 02:00 Lopressor IVPUSH Q4H PRN Tachycardia Morphine Sulfate 2 mg 12/06/17 02:07 Morphine IVPUSH Q4H PRN Pain Multivitamins 1 each 12/06/17 09:00 Thera PO DAILY [facility] Nicotine 21 mg 12/06/17 09:00 Habitrol TRDERM DAILY [facility] Ondansetron HCl 4 mg 12/06/17 01:57 Zofran IV Q6H PRN Nausea/Vomiting Oxycodone HCl 5 mg 12/06/17 01:57 Oxycodone PO Q4H PRN Pain (moderate 4-6) Pantoprazole Sodium 40 mg 12/06/17 09:00 Protonix Iv IV 12/08/17 09:00 Q12HR [facility] Pantoprazole Sodium 40 mg 12/06/17 01:57 Protonix Iv .XX 12/06/17 01:58 ONETIME ONE Polyethylene Glycol 17 gm 12/06/17 01:59 Miralax PO DAILY PRN Constipation Potassium Chloride 1 dose 12/06/17 02:00 Pharmacy To Dose - Potassium Replacement .XX ASDIRECTED [facility] Quetiapine Fumarate 50 mg 12/06/17 02:04 Seroquel PO 12/06/17 02:05 ONETIME ONE Quetiapine Fumarate 50 mg 12/06/17 21:00 Seroquel PO BEDTIME MARY ANN Senna/Docusate Sodium 1 tab 12/06/17 01:59 Senna Plus PO BID PRN Constipation Sodium Chloride 10 ml 12/05/17 22:49 01/31/18 23:05 Saline Flush FLUSH 10 ml ASDIRECTED PRN Administration Keep Vein Open Thiamine HCl 100 mg 12/06/17 09:00 Vitamin B-1 PO DAILY MARY ANN Topiramate 25 mg 12/06/17 02:04 Topamax PO 12/06/17 02:05 NOW STA Topiramate 25 mg 12/06/17 21:00 Topamax PO BID MARY ANN Discontinued Medications Generic Name Dose Route Start Last Admin Trade Name Que PRN Reason Stop Dose Admin Hydromorphone HCl 0.5 mg 12/06/17 01:57 Dilaudid IVPUSH Q2H PRN Pain (severe 7-10) Re-Assessment/Re-Exam: Blood alcohol came back at 0.28. Her labs as documented. Did show mild dehydration, mild hypokalemia but not severe. Lipase noted to be very mildly elevated. He did relate a history of possible pancreatitis a month or 2 ago so this would go along with that. He states he did have a scan at that time that did not show pancreatitis. He does not currently have upper abdominal pain or any appreciable upper abdominal tenderness at time of my exam. White blood count normal and not currently vomiting so CT scan was not done at time of initial workup. His states that if he goes back home he will keep drinking. He has tried to stop on his own before and has not been able to do that. She believes he will need to be in some type of inpatient program. With his heavy daily drinking for many years he is at risk for severe withdrawal symptoms. Or for admitted for medical detox and then to be placed with an appropriate treatment program. Departure - Departure Time of Disposition: 00:45 Disposition: Admitted As Inpatient 67 Condition: Fair Clinical Impression: Alcohol abuse with physiological dependence, Alcohol abuse - Discharge Information ED Communication - Discussed Case With (1) Discussed Case With (1): Admitting Provider (Dr Cuenca, decision to admit at about 01:00) - My Orders Last 24 Hours: My Active Orders 12/05/17 22:48 Peripheral IV Insertion Adult [OM.PC] Stat 12/05/17 22:49 Peripheral IV Care [RC] Q2HR Sodium Chloride 0.9% [Saline Flush] 10 ml FLUSH ASDIRECTED PRN 12/05/17 23:00 Sodium Chloride 0.9% [Normal Saline] 1,000 ml IV ONETIME 12/06/17 01:30 Sodium Chloride 0.9% [Normal Saline] 1,000 ml IV ONETIME - Assessment/Plan Last 24 Hours: My Active Orders 12/05/17 22:48 Peripheral IV Insertion Adult [OM.PC] Stat 12/05/17 22:49 Peripheral IV Care [RC] Q2HR Sodium Chloride 0.9% [Saline Flush] 10 ml FLUSH ASDIRECTED PRN 12/05/17 23:00 Sodium Chloride 0.9% [Normal Saline] 1,000 ml IV ONETIME 12/06/17 01:30 Sodium Chloride 0.9% [Normal Saline] 1,000 ml IV ONETIME
[2017-12-06] MEDS ORDERED: Sodium Chloride 0.9% 1,000 ML IV SCH ×2 (01:30→10:45)
[2017-12-06] MEDS ORDERED: Ibuprofen 600 MG Tab PO PRN (01:57)
[2017-12-06] MEDS ORDERED: Ondansetron 4 MG/2 ML SDV IV PRN (01:57)
[2017-12-06] MEDS ORDERED: Pantoprazole 40 MG Vial ONE (01:57)
[2017-12-06] MEDS ORDERED: oxyCODONE 5 MG Tab PO PRN (01:57)
[2017-12-06] MEDS ORDERED: Promethazine 12.5 MG in Sodium Chloride 0.9% 50 ML IV PRN (01:57)
[2017-12-06] MEDS ORDERED: HYDROmorphone 1 MG/ML Syringe IVPUSH PRN (01:57)
[2017-12-06] MEDS ORDERED: Docusate Sodium 100 MG Cap PO PRN (01:59)
[2017-12-06] MEDS ORDERED: Albuterol/Ipratropium 3.0-0.5 MG/3 ML Neb Soln NEB PRN (01:59)
[2017-12-06] MEDS ORDERED: Polyethylene Glycol 3350 Powder 17 GM Packet PO PRN (01:59)
[2017-12-06] MEDS ORDERED: Bisacodyl 5 MG Tab PO PRN (01:59)
[2017-12-06] MEDS ORDERED: hydrALAZINE 20 MG/ML SDV IVPUSH PRN (02:00)
[2017-12-06] MEDS ORDERED: LORazepam 2 MG/ML MDV IVPUSH PRN ×2 (02:00)
[2017-12-06] MEDS ORDERED: Metoprolol Tartrate 5 MG/5 ML SDV IVPUSH PRN (02:00)
[2017-12-06] MEDS ORDERED: chlordiazePOXIDE 25 MG Cap PO PRN (02:01)
[2017-12-06] MEDS ORDERED: cloNIDine 0.1 MG Tab PO PRN (02:01)
[2017-12-06] MEDS ORDERED: QUEtiapine 25 MG Tab PO ONE ×2 (02:04→04:00)
[2017-12-06] MEDS ORDERED: Topiramate 25 MG Tab PO STA (02:04)
[2017-12-06] MEDS ORDERED: Morphine 2 MG/ML Syringe IVPUSH PRN (02:07)
--- NOTE | 2017-12-06 02:08 | PCM.HP ---
H&P History of Present Illness - General Date of Service: 12/06/17 Admit Problem/Dx: Alcohol Withdrawal Source of Information: Patient, Old Records, Provider, RN Notes Reviewed History Limitations: Reports: Intoxication - History of Present Illness Initial Comments - Free Text/Narative: This is a 37-year-old white male with past medical history of impaired vision, hypertension, anxiety, and chronic alcohol abuse who was brought in by family for treatment of acute on chronic alcoholism. Patient carries a long-standing history of alcohol abuse and dependency. He has been drinking more than usual since he lost his job about 2 years ago. Patient used to drinks after work but now pretty much throughout the day. His last drink was about 6:30 this morning. He drinks about a case of beer. Patient is agreeable for some form of treatment. Patient denies passing out, no seizures or tremors. His initial workup in emergency department shows a fairly unremarkable CBC. His chemistry is remarkable for potassium of 2.2, anion gap of 17.2, glucose of 162 , total bilirubin of 1.2, AST of 49, and lipase of 655. His UDS is negative. His blood alcohol level is 0.28. Patient is being admitted for alcohol detoxification. He is full code. - Related Data Allergies/Adverse Reactions: Allergies Allergy/AdvReac Type Severity Reaction Status Date / Time hydromorphone [From Dilaudid] AdvReac Vomiting Verified 12/06/17 07:04 Home Medications: Home Meds . [No Known Home Meds] 10/28/17 [History] Past Medical History HEENT History: Reports: Impaired Vision Cardiovascular History: Reports: Hypertension Psychiatric History: Reports: Addiction, Anxiety - Infectious Disease History Infectious Disease History: Reports: Chicken Pox - Past Surgical History GI Surgical History: Reports: Appendectomy Musculoskeletal Surgical History: Reports: Other (See Below) Other Musculoskeletal Surgeries/Procedures:: right ankle Social & Family History - Family History Family Medical History: Noncontributory - Tobacco Use Smoking Status *Q: Current Every Day Smoker Years of Tobacco use: 20 Packs/Tins Daily: 1.5 Used Tobacco, but Quit: No - Caffeine Use Caffeine Use: Reports: None - Alcohol Use Days Per Week of Alcohol Use: 7 Number of Drinks Per Day: 24 Total Drinks Per Week: 168 Date of Last Drink: 12/05/17 Time of Last Drink: 21:00 - Recreational Drug Use Recreational Drug Use: No H&P Review of Systems - Review of Systems: Review Of Systems: See Below General: Reports: Decreased Appetite. Denies: Fever, Chills, Malaise, Weakness , Fatigue HEENT: Reports: No Symptoms Pulmonary: Denies: Shortness of Breath, Wheezing, Pleuritic Chest Pain, Cough Cardiovascular: Denies: Chest Pain, Dyspnea on Exertion, Lightheadedness, Syncope, Blood Pressure Problem Gastrointestinal: Reports: Vomiting. Denies: Abdominal Pain, Nausea Genitourinary: Reports: No Symptoms Musculoskeletal: Reports: No Symptoms Skin: Denies: Cyanosis, Jaundice, Mottled, Pallor, Diaphoresis, Pruritis, Erythema Psychiatric: Denies: Depression, Anxiety, Agitation, Hallucinations, Suicidal Ideation, Homicidal Ideation Neurological: Reports: Dizziness, Difficulty Walking, Gait Disturbance. Denies : Confusion, Seizure, Syncope, Weakness Hematologic/Lymphatic: Reports: No Symptoms Immunologic: Reports: No Symptoms Exam - Exam Exam: See Below - Vital Signs Vital Signs: Last Vital Signs Temp 36.9 C 12/05/17 22:35 Pulse 95 12/05/17 22:35 Resp 12 12/05/17 22:35 BP 165/92 H 12/05/17 22:35 Pulse Ox 96 12/05/17 22:35 Weight: 69.4 kg - Exam General: Alert, Cooperative HEENT: Conjunctiva Clear, EACs Clear, Hearing Intact, Mucosa Moist & [place], Normal Nasal Septum, Posterior Pharynx Clear, Pupils Reactive. No: EOMI Neck: Supple, Trachea Midline, +2 Carotid Pulse wo Bruit, Full Range of Motion Lungs: Clear to Auscultation, Normal Respiratory Effort Cardiovascular: Regular Rate, Regular Rhythm GI/Abdominal Exam: Normal Bowel Sounds, Soft, Non-Tender, No Organomegaly, No Distention, No Abnormal Bruit, No Mass (Male) Exam: Deferred Rectal (Males) Exam: Deferred Back Exam: Normal Inspection, Decreased Range of Motion Extremities: Normal Inspection, Normal Range of Motion, Non-Tender, No Pedal Edema, Normal Capillary Refill Peripheral Pulses: 3+: Posterior Tibial (L), Posterior Tibial (R), Dorsalis Pedis (L), Dorsalis Pedis (R) Skin: Warm, Dry, Intact Neuro Extensive - Mental Status: Normal Cognition, Memory Intact, Slow Response to Commands Neuro Extensive - Motor, Sensory, Reflexes: CN II-XII Intact (limited due to intoxication), Abnormal Gait Psychiatric: Alert, Normal Affect, Normal Mood. No: Agitated, Suicidal Ideation , Homicidal Ideation, Hallucinations, Withdrawal Symptoms - Patient Data Result Diagrams: 12/06/17 05:45 12/06/17 05:45 *Q Meaningful Use (ADM) - VTE *Q VTE Criteria *Q: - Stroke *Q Stroke Criteria *Q: - AMI *Q AMI Criteria *Q: Problem List Initiated/Reviewed/Updated: Yes Orders Last 24hrs: Active Orders 24 hr Category Date Time Status Antiembolic Devices [RC] PER UNIT ROUTINE Care 12/06/17 01:59 Active CIWAA Assessment [RC] Q15M Care 12/06/17 01:58 Active CIWAA Assessment [RC] Q1H Care 12/06/17 01:58 Active CIWAA Assessment [RC] Q30M Care 12/06/17 01:58 Active CIWAA Assessment [RC] Q4H Care 12/06/17 01:58 Active Cardiac Monitoring [RC] CONTINUOUS Care 12/06/17 01:58 Active Height and Weight [RC] DAILY Care 12/06/17 01:57 Active Intake and Output [RC] QSHIFT Care 12/06/17 01:58 Active Notify Provider Consults [RC] ASDIRECTED Care 12/06/17 02:03 Active Notify Provider [RC] PRN Care 12/06/17 01:58 Active Oxygen Therapy [RC] PRN Care 12/06/17 01:58 Active RT Aerosol Therapy [RC] ASDIRECTED Care 12/06/17 02:00 Active Up With Assistance [RC] ASDIRECTED Care 12/06/17 01:57 Active Up ad Tamiko [RC] ASDIRECTED Care 12/06/17 01:57 Active VTE/DVT Education [RC] PER UNIT ROUTINE Care 12/06/17 01:58 Active Vital Signs [RC] Q4H Care 12/06/17 01:58 Active Consult to Case Management [CONS] Routine Cons 12/06/17 02:01 Active Consult to Physician [CONS] Routine Cons 12/06/17 02:01 Active Consult to [place] [CONS] Routine Cons 12/06/17 02:01 Active Consult to Spiritual Care [CONS] Routine Cons 12/06/17 02:01 Active Regular Diet [DIET] Diet 12/06/17 Breakfast Active BASIC METABOLIC PANEL,BMP [CHEM] AM Lab 12/06/17 05:11 Ordered BASIC METABOLIC PANEL,BMP [CHEM] AM Lab 12/07/17 05:11 Ordered BASIC METABOLIC PANEL,BMP [CHEM] AM Lab 12/08/17 05:11 Ordered BASIC METABOLIC PANEL,BMP [CHEM] AM Lab 12/09/17 05:11 Ordered BASIC METABOLIC PANEL,BMP [CHEM] AM Lab 12/10/17 05:11 Ordered BASIC METABOLIC PANEL,BMP [CHEM] AM Lab 12/11/17 05:11 Ordered CBC WITH AUTO DIFF [HEME] AM Lab 12/06/17 05:11 Ordered CBC WITH AUTO DIFF [HEME] AM Lab 12/07/17 05:11 Ordered CBC WITH AUTO DIFF [HEME] AM Lab 12/08/17 05:11 Ordered MAGNESIUM [CHEM] AM Lab 12/06/17 05:11 Ordered MAGNESIUM [CHEM] AM Lab 12/07/17 05:11 Ordered MAGNESIUM [CHEM] AM Lab 12/08/17 05:11 Ordered MAGNESIUM [CHEM] AM Lab 12/09/17 05:11 Ordered MAGNESIUM [CHEM] AM Lab 12/10/17 05:11 Ordered MAGNESIUM [CHEM] AM Lab 12/11/17 05:11 Ordered Albuterol/Ipratropium [DuoNeb 3.0-0.5 MG/3 ML] Med 12/06/17 01:59 Ordered 3 ml NEB Q4H PRN Bisacodyl [Dulcolax] Med 12/06/17 01:59 Ordered 5 mg PO DAILY PRN Dextrose 5%-0.9% NaCl [Dextrose 5%-Normal Saline] 1,000 Med 12/06/17 02:15 Ordered ml IV ASDIRECTED Docusate Sodium [Colace] Med 12/06/17 01:59 Ordered 100 mg PO BID PRN Docusate Sodium/Sennosides [Senna Plus] Med 12/06/17 01:59 Ordered 1 tab PO BID PRN Folic Acid Med 12/06/17 09:00 Ordered 1 mg PO DAILY Ibuprofen [Motrin] Med 12/06/17 01:57 Ordered 600 mg PO Q6H PRN LORazepam [Ativan] Med 12/06/17 02:00 Ordered 2 mg IVPUSH Q4H PRN LORazepam [Ativan] Med 12/06/17 02:00 Ordered See Protocol IVPUSH Q4H PRN Magnesium Rep Pharmacy to Dose [Pharmacy to Dose - Med 12/06/17 02:00 Ordered Magnesium Replacement] 1 dose .XX ASDIRECTED Metoprolol Tartrate [Lopressor] Med 12/06/17 02:00 Ordered 5 mg IVPUSH Q4H PRN Morphine Med 12/06/17 02:07 Ordered 2 mg IVPUSH Q4H PRN Multivitamins,Therapeutic [Thera] Med 12/06/17 09:00 Ordered 1 each PO DAILY Nicotine [Habitrol] Med 12/06/17 09:00 Ordered 21 mg TRDERM DAILY Ondansetron [Zofran] Med 12/06/17 01:57 Ordered 4 mg IV Q6H PRN Pantoprazole [ProTONIX IV] Med 12/06/17 01:57 Once 40 mg .XX ONETIME ONE Pantoprazole [ProTONIX IV] Med 12/06/17 09:00 Ordered 40 mg IV Q12HR Polyethylene Glycol 3350 [MiraLAX] Med 12/06/17 01:59 Ordered 17 gm PO DAILY PRN Potassium Rep Pharmacy to Dose [Pharmacy to Dose - Med 12/06/17 02:00 Ordered Potassium Replacement] 1 dose .XX ASDIRECTED Promethazine [Phenergan] 12.5 mg Med 12/06/17 01:57 Ordered Sodium Chloride 0.9% [Normal Saline] 50 ml IV Q6H QUEtiapine [SEROquel] Med 12/06/17 21:00 Ordered 50 mg PO BEDTIME QUEtiapine [SEROquel] Med 12/06/17 02:04 Once 50 mg PO ONETIME ONE Thiamine [Vitamin B-1] Med 12/06/17 09:00 Ordered 100 mg PO DAILY Topiramate [Topamax] Med 12/06/17 21:00 Ordered 25 mg PO BID Topiramate [Topamax] Med 12/06/17 02:04 Stat 25 mg PO NOW STA chlordiazePOXIDE [Librium] Med 12/06/17 02:01 Ordered 25 mg PO Q8H PRN cloNIDine [Catapres] Med 12/06/17 02:01 Ordered 0.1 mg PO Q4H PRN hydrALAZINE [Apresoline] Med 12/06/17 02:00 Ordered 20 mg IVPUSH Q4H PRN oxyCODONE Med 12/06/17 01:57 Ordered 5 mg PO Q4H PRN Seizure Precautions [OM.PC] Routine Oth 12/06/17 02:01 Ordered Sequential Compression Device [OM.PC] Per Unit Routine Oth 12/06/17 01:58 Ordered Resuscitation Status Routine Resus Stat 12/06/17 01:57 Ordered Medication Orders Albuterol/Ipratropium (Duoneb 3.0-0.5 Mg/3 Ml) 3 ml NEB Q4H PRN PRN Reason: Shortness Of Breath/wheezing Bisacodyl (Dulcolax) 5 mg PO DAILY PRN PRN Reason: Constipation Chlordiazepoxide HCl (Librium) 25 mg PO Q8H PRN PRN Reason: Withdrawal Symptoms Clonidine HCl (Catapres) 0.1 mg PO Q4H PRN PRN Reason: Agitation Docusate Sodium (Colace) 100 mg PO BID PRN PRN Reason: Constipation Folic Acid (Folic Acid) 1 mg PO DAILY [facility] Stop: 12/08/17 09:01 Hydralazine HCl (Apresoline) 20 mg IVPUSH Q4H PRN PRN Reason: Hypertension Sodium Chloride (Normal Saline) 1,000 mls @ 999 mls/hr IV ONETIME [facility] Last Admin: 12/05/17 23:03 Dose: 999 mls/hr Sodium Chloride (Normal Saline) 1,000 mls @ 999 mls/hr IV ONETIME [facility] Promethazine HCl 12.5 mg/ (Sodium Chloride) 50.5 mls @ 100 mls/hr IV Q6H PRN PRN Reason: Nausea/Vomiting Dextrose/Sodium Chloride (Dextrose 5%-Normal Saline) 1,000 mls @ 125 mls/hr IV ASDIRECTED [facility] Ibuprofen (Motrin) 600 mg PO Q6H PRN PRN Reason: Pain (moderate 4-6) Lorazepam (Ativan) 2 mg IVPUSH Q4H PRN PRN Reason: Seizures Lorazepam (Ativan) 0 mg IVPUSH Q4H PRN; Protocol PRN Reason: Withdrawal Symptoms Magnesium Sulfate (Pharmacy To Dose - Magnesium Replacement) 1 dose .XX ASDIRECTED [facility] Metoprolol Tartrate (Lopressor) 5 mg IVPUSH Q4H PRN PRN Reason: Tachycardia Multivitamins (Thera) 1 each PO DAILY [facility] Nicotine (Habitrol) 21 mg TRDERM DAILY [facility] Ondansetron HCl (Zofran) 4 mg IV Q6H PRN PRN Reason: Nausea/Vomiting Oxycodone HCl (Oxycodone) 5 mg PO Q4H PRN PRN Reason: Pain (moderate 4-6) Pantoprazole Sodium (Protonix Iv) 40 mg IV Q12HR [facility] Stop: 12/08/17 09:00 Pantoprazole Sodium (Protonix Iv) 40 mg .XX ONETIME ONE Stop: 12/06/17 01:58 Polyethylene Glycol (Miralax) 17 gm PO DAILY PRN PRN Reason: Constipation Potassium Chloride (Pharmacy To Dose - Potassium Replacement) 1 dose .XX ASDIRECTED [facility] Quetiapine Fumarate (Seroquel) 50 mg PO ONETIME ONE Stop: 12/06/17 02:05 Quetiapine Fumarate (Seroquel) 50 mg PO BEDTIME [facility] Senna/Docusate Sodium (Senna Plus) 1 tab PO BID PRN PRN Reason: Constipation Sodium Chloride (Saline Flush) 10 ml FLUSH ASDIRECTED PRN PRN Reason: Keep Vein Open Last Admin: 12/05/17 23:05 Dose: 10 ml Thiamine HCl (Vitamin B-1) 100 mg PO DAILY [facility] Topiramate (Topamax) 25 mg PO NOW STA Stop: 12/06/17 02:05 Topiramate (Topamax) 25 mg PO BID [facility] Assessment/Plan Comment:: Assessment: Acute: ETOH Abuse - KATIE level of 0.28 - CIWA protocol: CIWA score is markedly elevated - Ativan/Seroquel/Clonidine/Topamax - Hydralazine and IVP BB for HR/BP control - Ativan for Abortive Seizure and Withdrawal Symptoms Chronic ETOH Abuse - CIWA protocol - Ativan/Librium PRN Mild Alcohol Pancreatitis - Lipase 655 - 2/2 ETOH Abuse - Supportive Care - NPO for now except ice chips, sips of water and medications Mild Hypokalemia - K 3.2 - 2/2 inadequate intake - Replete and monitor Tobacco Dependence - Nicotine patch - Counseled on Smoking Cessation Plan: Admit to ICU D5W NS 1L at 125 cc/hr MVI, Folic Acid and Thiamine CIWA protocol Ativan for Abortive Seizure and Withdrawal Symptoms PRN meds for Withdrawal Symptoms Aspiration/Seizure Precautions SW/CM d/c planning SA/Psych consult Code Status: 1
[2017-12-06] MEDS ORDERED: Dextrose 5%-0.9% NaCl 1,000 ML IV SCH (02:15)
[2017-12-06] MEDS: Potassium Chloride 10 MEQ in Premix Bag 1 BAG IV SCH ×4 (03:14→06:33)
--- NOTE | 2017-12-06 08:29 | PCM.PN ---
- General Info Date of Service: 12/06/17 Admission Dx/Problem (Free Text): Alcohol Withdrawal Subjective Update: Follow Up Functional Status: Reports: Pain Controlled, Ambulating, Urinating. Denies: New Symptoms - Review of Systems General: Denies: Fever, Weakness, Fatigue, Malaise, Chills HEENT: Reports: No Symptoms Pulmonary: Denies: Shortness of Breath, Pleuritic Chest Pain Cardiovascular: Denies: Chest Pain Gastrointestinal: Reports: [place]. Denies: Abdominal Pain, Constipation, Diarrhea, Nausea, Vomiting Genitourinary: Reports: No Symptoms Musculoskeletal: Reports: No Symptoms Skin: Denies: Cyanosis, Mottled, Pallor, Diaphoresis, Bruising, Rash Neurological: Denies: Confusion, Seizure, Difficulty Walking, Weakness, Gait Disturbance Psychiatric: Denies: Depression, Anxiety, Agitation, Cravings, Hallucinations, Suicidal Ideation, Homicidal Ideation Systems Review Comment:: No overnight or acute issues. He slept pretty good. He feels good this am. He has no complaints. His morning labs are fairly unremarkable. - Patient Data Vitals - Most Recent: Last Vital Signs Temp 36.7 C 12/06/17 08:00 Pulse 82 12/06/17 08:00 Resp 15 12/06/17 08:00 BP 128/69 12/06/17 08:00 Pulse Ox 93 L 12/06/17 08:00 Weight - Most Recent: 72.257 kg Lab Results Last 24 Hours: Laboratory Results - last 24 hr 12/06/17 12/06/17 Range/Units 05:45 05:45 WBC 5.47 (4.23-9.07) K/mm3 RBC 5.12 (4.63-6.08) M/mm3 Hgb 15.9 (13.7-17.5) gm/L Hct 46.2 (40.1-51.0) % MCV 90.2 (79.0-92.2) fl MCH 31.1 (25.7-32.2) pg MCHC 34.4 (32.2-35.5) g/dl RDW Std Deviation 42.9 (35.1-43.9) fL Plt Count 149 L (163-337) K/mm3 MPV 10.3 (9.4-12.3) fl Neut % (Auto) 50.5 (34.0-67.9) % Lymph % (Auto) 32.9 (21.8-53.1) % [place] % (Auto) 13.5 H (5.3-12.2) % Eos % (Auto) 2.9 (0.8-7.0) Baso % (Auto) 0.2 (0.1-1.2) % Neut # (Auto) 2.76 (1.78-5.38) K/mm3 Lymph # (Auto) 1.80 (1.32-3.57) K/mm3 [place] # (Auto) 0.74 (0.30-0.82) K/mm3 Eos # (Auto) 0.16 (0.04-0.54) K/mm3 Baso # (Auto) 0.01 (0.01-0.08) K/mm3 Sodium 142 (136-145) mEq/L Potassium 4.1 (3.5-5.1) mEq/L Chloride 108 H (98-107) mEq/L Carbon Dioxide 22 (21-32) mEq/L Anion Gap 16.1 H (5-15) BUN 7 (7-18) mg/dL Creatinine 0.8 (0.7-1.3) mg/dL Est Cr Clr Drug Dosing 130.46 mL/min Estimated GFR (MDRD) > 60 (>60) mL/min BUN/Creatinine Ratio 8.8 L (14-18) Glucose 112 H (74-106) mg/dL Calcium 8.3 L (8.5-10.1) mg/dL Magnesium 2.0 (1.8-2.4) mg/dl Med Orders - Current: Current Medications Albuterol/Ipratropium (Duoneb 3.0-0.5 Mg/3 Ml) 3 ml NEB Q4H PRN PRN Reason: Shortness Of Breath/wheezing Bisacodyl (Dulcolax) 5 mg PO DAILY PRN PRN Reason: Constipation Chlordiazepoxide HCl (Librium) 25 mg PO Q8H PRN PRN Reason: Withdrawal Symptoms Last Admin: 12/06/17 03:45 Dose: 25 mg Clonidine HCl (Catapres) 0.1 mg PO Q4H PRN PRN Reason: Agitation Docusate Sodium (Colace) 100 mg PO BID PRN PRN Reason: Constipation Folic Acid (Folic Acid) 1 mg PO DAILY [facility] Stop: 12/08/17 09:01 Hydralazine HCl (Apresoline) 20 mg IVPUSH Q4H PRN PRN Reason: Hypertension Promethazine HCl 12.5 mg/ (Sodium Chloride) 50.5 mls @ 100 mls/hr IV Q6H PRN PRN Reason: Nausea/Vomiting Dextrose/Sodium Chloride (Dextrose 5%-Normal Saline) 1,000 mls @ 125 mls/hr IV ASDIRECTED [facility] Last Admin: 12/06/17 03:53 Dose: 125 mls/hr Ibuprofen (Motrin) 600 mg PO Q6H PRN PRN Reason: Pain (moderate 4-6) Lorazepam (Ativan) 2 mg IVPUSH Q4H PRN PRN Reason: Seizures Lorazepam (Ativan) 0 mg IVPUSH Q4H PRN; Protocol PRN Reason: Withdrawal Symptoms Magnesium Sulfate (Pharmacy To Dose - Magnesium Replacement) 0 dose .XX ASDIRECTED PRN PRN Reason: RX TO WATCH MAG LEVELS Metoprolol Tartrate (Lopressor) 5 mg IVPUSH Q4H PRN PRN Reason: Tachycardia Miscellaneous Information (Remove Patch) 0 ea TRDERM DAILY [facility] Morphine Sulfate (Morphine) 2 mg IVPUSH Q4H PRN PRN Reason: Pain Multivitamins (Thera) 1 each PO DAILY [facility] Nicotine (Habitrol) 21 mg TRDERM DAILY [facility] Ondansetron HCl (Zofran) 4 mg IV Q6H PRN PRN Reason: Nausea/Vomiting Oxycodone HCl (Oxycodone) 5 mg PO Q4H PRN PRN Reason: Pain (moderate 4-6) Pantoprazole Sodium (Protonix Iv) 40 mg IV Q12HR [facility] Stop: 12/08/17 09:00 Polyethylene Glycol (Miralax) 17 gm PO DAILY PRN PRN Reason: Constipation Potassium Chloride (Pharmacy To Dose - Potassium Replacement) 1 dose .XX ASDIRECTED [facility] Quetiapine Fumarate (Seroquel) 50 mg PO BEDTIME [facility] Senna/Docusate Sodium (Senna Plus) 1 tab PO BID PRN PRN Reason: Constipation Sodium Chloride (Saline Flush) 10 ml FLUSH ASDIRECTED PRN PRN Reason: Keep Vein Open Last Admin: 12/05/17 23:05 Dose: 10 ml Thiamine HCl (Vitamin B-1) 100 mg PO DAILY [facility] Topiramate (Topamax) 25 mg PO BID [facility] Discontinued Medications Hydromorphone HCl (Dilaudid) 0.5 mg IVPUSH Q2H PRN PRN Reason: Pain (severe 7-10) Sodium Chloride (Normal Saline) 1,000 mls @ 999 mls/hr IV ONETIME [facility] Last Admin: 12/05/17 23:03 Dose: 999 mls/hr Sodium Chloride (Normal Saline) 1,000 mls @ 999 mls/hr IV ONETIME [facility] Potassium Chloride 10 meq/ (Premix) 100 mls @ 100 mls/hr IV Q1H [facility] Stop: 12/06/17 06:29 Last Admin: 12/06/17 06:33 Dose: 100 mls/hr Pantoprazole Sodium (Protonix Iv) 40 mg .XX ONETIME ONE Stop: 12/06/17 01:58 Last Admin: 12/06/17 03:14 Dose: 40 mg Quetiapine Fumarate (Seroquel) 50 mg PO ONETIME ONE Stop: 12/06/17 02:05 Last Admin: 12/06/17 03:53 Dose: 50 mg Quetiapine Fumarate (Seroquel) 50 mg PO ONETIME ONE Stop: 12/06/17 04:01 Last Admin: 12/06/17 04:12 Dose: Not Given Topiramate (Topamax) 25 mg PO NOW STA Stop: 12/06/17 02:05 Last Admin: 12/06/17 03:45 Dose: 25 mg - Exam General: Alert, Oriented, Cooperative, No Acute Distress, Sedated HEENT: Pupils Equal, Pupils Reactive, EOMI, Mucous Membr. Moist/[place] Neck: Supple, Trachea Midline, No JVD Lungs: Clear to Auscultation, Normal Respiratory Effort Cardiovascular: Regular Rate, Regular Rhythm GI/Abdominal Exam: Normal Bowel Sounds, Soft, Non-Tender, No Organomegaly, No Distention, No Abnormal Bruit, No Mass (Male) Exam: Deferred Back Exam: Normal Inspection, Full Range of Motion Extremities: Normal Inspection, Normal Range of Motion, Non-Tender, No Pedal Edema, Normal Capillary Refill Peripheral Pulses: 3+: Posterior Tibial (L), Posterior Tibial (R), Dorsalis Pedis (L), Dorsalis Pedis (R) Skin: Warm, Dry, Intact Neurological: No New Focal Deficit Psy/Mental Status: Alert, Normal Affect, Normal Mood, Withdrawal Symptoms (mild tremors). No: Anxious, Depressed, Agitated, Suicidal Ideation, Homicidal Ideation, Hallucinations - Problem List Review Problem List Initiated/Reviewed/Updated: Yes - My Orders Last 24 Hours: My Active Orders 12/06/17 01:57 Height and Weight [RC] 04 Up With Assistance [RC] ASDIRECTED Up ad Tamiko [RC] ASDIRECTED Ibuprofen [Motrin] 600 mg PO Q6H PRN Ondansetron [Zofran] 4 mg IV Q6H PRN Promethazine [Phenergan] 12.5 mg Sodium Chloride 0.9% [Normal Saline] 50 ml IV Q6H oxyCODONE 5 mg PO Q4H PRN Resuscitation Status Routine 12/06/17 01:58 CIWAA Assessment [RC] Q1HR CIWAA Assessment [RC] Q30M CIWAA Assessment [RC] Q4H Cardiac Monitoring [RC] CONTINUOUS Intake and Output [RC] 04,16 Notify Provider [RC] PRN Oxygen Therapy [RC] PRN VTE/DVT Education [RC] 10,22 Vital Signs [RC] Q4HR Sequential Compression Device [OM.PC] Per Unit Routine 12/06/17 01:59 Antiembolic Devices [RC] QSHIFT Albuterol/Ipratropium [DuoNeb 3.0-0.5 MG/3 ML] 3 ml NEB Q4H PRN Bisacodyl [Dulcolax] 5 mg PO DAILY PRN Docusate Sodium [Colace] 100 mg PO BID PRN Docusate Sodium/Sennosides [Senna Plus] 1 tab PO BID PRN Polyethylene Glycol 3350 [MiraLAX] 17 gm PO DAILY PRN 12/06/17 02:00 RT Aerosol Therapy [RC] ASDIRECTED LORazepam [Ativan] 2 mg IVPUSH Q4H PRN LORazepam [Ativan] See Protocol IVPUSH Q4H PRN Magnesium Rep Pharmacy to Dose [Pharmacy to Dose - Magnesium Replacement] 0 dose .XX ASDIRECTED PRN Metoprolol Tartrate [Lopressor] 5 mg IVPUSH Q4H PRN Potassium Rep Pharmacy to Dose [Pharmacy to Dose - Potassium Replacement] 1 dose .XX ASDIRECTED hydrALAZINE [Apresoline] 20 mg IVPUSH Q4H PRN 12/06/17 02:01 Consult to Case Management [CONS] Routine Consult to Physician [CONS] Routine Consult to Shipping Assistant [CONS] Routine Consult to Spiritual Care [CONS] Routine chlordiazePOXIDE [Librium] 25 mg PO Q8H PRN cloNIDine [Catapres] 0.1 mg PO Q4H PRN Seizure Precautions [OM.PC] Routine 12/06/17 02:03 Notify Provider Consults [RC] ASDIRECTED 12/06/17 02:07 Morphine 2 mg IVPUSH Q4H PRN 12/06/17 02:15 Dextrose 5%-0.9% NaCl [Dextrose 5%-Normal Saline] 1,000 ml IV ASDIRECTED 12/06/17 02:17 Precautions [COMM] Routine 12/06/17 02:25 Consult for Substance Abuse [CONS] Routine 12/06/17 03:41 Patient Status [ADT] Routine 12/06/17 09:00 Folic Acid 1 mg PO DAILY Multivitamins,Therapeutic [Thera] 1 each PO DAILY Nicotine [Habitrol] 21 mg TRDERM DAILY Pantoprazole [ProTONIX IV] 40 mg IV Q12HR Remove Patch 0 ea TRDERM DAILY Thiamine [Vitamin B-1] 100 mg PO DAILY 12/06/17 21:00 QUEtiapine [SEROquel] 50 mg PO BEDTIME Topiramate [Topamax] 25 mg PO BID 12/06/17 Breakfast Regular Diet [DIET] 12/07/17 05:11 BASIC METABOLIC PANEL,BMP [CHEM] AM CBC WITH AUTO DIFF [HEME] AM MAGNESIUM [CHEM] AM 12/08/17 05:11 BASIC METABOLIC PANEL,BMP [CHEM] AM CBC WITH AUTO DIFF [HEME] AM MAGNESIUM [CHEM] AM 12/09/17 05:11 BASIC METABOLIC PANEL,BMP [CHEM] AM MAGNESIUM [CHEM] AM 12/10/17 05:11 BASIC METABOLIC PANEL,BMP [CHEM] AM MAGNESIUM [CHEM] AM 12/11/17 05:11 BASIC METABOLIC PANEL,BMP [CHEM] AM MAGNESIUM [CHEM] AM - Plan Plan:: Assessment: Acute: ETOH Abuse - KATIE level of 0.28 - CIWA protocol: CIWA score is 3-4 this am - Ativan/Seroquel/Clonidine/Topamax - Hydralazine and IVP BB for HR/BP control - Ativan for Abortive Seizure and Withdrawal Symptoms Chronic ETOH Abuse - CIWA protocol - Ativan/Librium PRN Mild Alcohol Pancreatitis - Lipase 655 - 2/2 ETOH Abuse - Supportive Care - Resume regular diet Tobacco Dependence - Nicotine patch - Counseled on Smoking Cessation Resolved: Mild Hypokalemia - K 3.2-->.1 - 2/2 inadequate intake - Replete and monitor Plan: He is clinically stable Transfer to Med-Surg with Tele Continue MVI, Folic Acid, Thiamine and CIWA protocol Ativan for Abortive Seizure and Withdrawal Symptoms PRN meds for Withdrawal Symptoms Aspiration/Seizure Precautions SW/CM d/c planning SA/Psych consult Code Status: 1 Possible d/c in 1-2 days
[2017-12-06] MEDS: Thiamine 100 MG Tab PO SCH (09:20)
[2017-12-06] MEDS: Folic Acid 1 MG Tab PO SCH (09:20)
[2017-12-06] MEDS: Multivitamins,Therapeutic Tab PO SCH (09:20)
[2017-12-06] MEDS: Nicotine 21 MG/24 Hr Patch TRDERM SCH (09:21)
[2017-12-06] MEDS: Pantoprazole 40 MG Vial IV SCH ×2 (09:21→20:03)
--- NOTE | 2017-12-06 16:20 | CONS ---
CONSULTING PHYSICIAN: Esteban Pete MD DATE OF CONSULTATION: 12/06/2017 IDENTIFICATION: The patient is a 37-year-old male, who was admitted to the [facility] Inpatient MICU on 12/05/2017. He is seen for psychiatric evaluation. CHIEF COMPLAINT: "I was abusing alcohol." HISTORY OF PRESENT ILLNESS: The patient is a 37-year-old male who reports he has been drinking about "18-24 beers a day." He states that he had tried to quit drinking "a few months ago" but only was able to maintain sobriety for about 3 days. He states that lately he has been waking up and feeling sick to his stomach and throwing up and staff is reporting he is having some marital difficulties doing so. He is now seeking treatment. He wants inpatient treatment. He is stating "if I get sober, my mood will be better. I do not need no pills" and is denying any depression or anxiety. On admission, his BAL was 0.28, and he estimates it has been about "20 hours" since he had last drink. He denies any past history of withdrawal seizures. He again is denying any suicidal or homicidal ideation. He denies any psychotic, delusional, or paranoid symptoms. He denies any other illicit substance use complicating his clinical picture. He just wants to get through withdrawal and go to treatment at this point in time. MEDICATIONS: At the time of presentation, none. ALLERGIES: Hydromorphone. PAST MEDICAL HISTORY: Past history of hypertension, not medically treated at this point in time. REVIEW OF SYSTEMS: Aside from cardiovascular, all other major organ systems are negative at this point in time for acute difficulties or complications. FAMILY PSYCHIATRIC AND CD HISTORY: Patient reports father and mother both had a history of alcoholism. PAST PSYCHIATRIC AND CD HISTORY: The patient denies any previous psychiatric hospitalizations or chemical dependency treatment. Again longest sobriety is for about 3 days and he is currently drinking up to a case of beer a day. Denies any previous suicide attempts or self-injurious behaviors. He has never been on psychiatric medications in the past. SOCIAL HISTORY: The patient was born and raised in [place], [place]. He is the third of 3 siblings and 1 half-brother and 1 half-sister. The patient's parents were throughout his childhood and adolescence. 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 The patient's highest level of education is a high school diploma. 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 The patient has been x1 for 7 years. His works at the [employer], is a front desk administrator. The patient has no biological children. He lives with his and 3 step children in [place], [place]. Denies any prior service or current legal difficulties. He is raised Gnosticism. He enjoys hunting and fishing in his spare time. MENTAL STATUS EXAMINATION: The patient is a 37-year-old, soft-spoken white male in no apparent distress. Speech is of regular rate and rhythm. The patient is cognitively oriented x3. Psychomotor activity is within normal limits. There is no abnormal motor movements or tics observed. Gait and station are not observed as the patient is seated on the side of his bed for the inpatient consult. There is no behavioral or stated evidence of acute suicidal or homicidal ideation or acute psychotic, delusional, or paranoid symptoms. Thought processes are organized. There are no manic symptoms or loose associations evident. Judgment and insight appear unimpaired at this point in time. Motivation for help is good. VITAL SIGNS: 136/85, 67, 16, and 98 degrees. IMPRESSION: Fairdealing I: 1. Alcohol dependence F10.20. 2. Anxiety disorder, not otherwise specified, F41.9. Fairdealing II: None. Fairdealing III: Past history of hypertension, not currently medically treated. Fairdealing IV: Severe. Fairdealing V: 55. PLAN: 1. Sobriety. 2. AA digital media representative to visit the patient while he is on the MICU status. 3. Pastoral guidance. 4. Recommend CD consult, so patient can get appropriately placed in inpatient chemical dependency treatment when he is medically stabilized. 5. Do recommend inpatient chemical dependency treatment upon medical stabilization for the patient. 6. Begin Topamax 25 mg b.i.d. for seizure prophylaxis. 7. Begin Seroquel 50 mg at bedtime while the patient is on the medical unit for psychosis prophylaxis, also for sleep initiation and maintenance, anxiety reduction, and mood stability, and clarity of thought. 8. Thiamine supplementation. 9. Folic acid supplementation. 10.Ativan per [facility] protocol. 11.We will continue to follow up with the patient while he remains on inpatient medical unit on an as-needed basis going forward. 12.We will follow up with the patient sooner if any complications in the interim. 13.Crisis plan is in place. CHARLI /[id number]
[2017-12-06] MEDS: Topiramate 25 MG Tab PO SCH (20:03)
[2017-12-06] MEDS ORDERED: QUEtiapine 25 MG Tab PO SCH (21:00)
[2017-12-07] MEDS: Nicotine 21 MG/24 Hr Patch TRDERM SCH (08:27)
[2017-12-07] MEDS: Thiamine 100 MG Tab PO SCH (08:27)
[2017-12-07] MEDS: Pantoprazole 40 MG Vial IV SCH (08:27)
[2017-12-07] MEDS: Topiramate 25 MG Tab PO SCH (08:27)
[2017-12-07] MEDS: Folic Acid 1 MG Tab PO SCH (08:27)
[2017-12-07] MEDS: Multivitamins,Therapeutic Tab PO SCH (08:27)
--- NOTE | 2017-12-07 09:45 | PCM.PN ---
- General Info Date of Service: 12/07/17 Admission Dx/Problem (Free Text): Alcohol Withdrawal Subjective Update: Follow Up Functional Status: Reports: Pain Controlled, Tolerating Diet, Ambulating, Urinating. Denies: New Symptoms - Review of Systems General: Denies: Fever, Weakness, Fatigue, Malaise HEENT: Reports: No Symptoms Pulmonary: Denies: Shortness of Breath Cardiovascular: Denies: Chest Pain, Palpitations, Dyspnea on Exertion, Lightheadedness Gastrointestinal: Denies: Abdominal Pain, Nausea, Vomiting Genitourinary: Reports: Incontinence Musculoskeletal: Reports: No Symptoms Skin: Denies: Cyanosis, Mottled, Pallor, Diaphoresis, Bruising, Pruritis Neurological: Denies: Confusion, Seizure, Difficulty Walking, Weakness, Gait Disturbance Psychiatric: Denies: Depression, Mood Lability, Anxiety, Agitation, Cravings, Hallucinations, Suicidal Ideation, Homicidal Ideation Systems Review Comment:: No overnight or acute issues. He is doing relatively well. He denies any anxiety or depression. He has no complaints. - Patient Data Vitals - Most Recent: Last Vital Signs Temp 36.8 C 12/07/17 08:44 Pulse 58 L 12/07/17 04:00 Resp 16 12/07/17 08:44 BP 144/103 H 12/07/17 08:44 Pulse Ox 99 12/07/17 08:44 Weight - Most Recent: 71.685 kg I&O - Last 24 Hours: Intake & Output 12/06/17 12/07/17 12/07/17 22:59 06:59 14:59 Intake Total 2766 380 Output Total 1000 Balance 2766 -620 Lab Results Last 24 Hours: Laboratory Results - last 24 hr 12/07/17 12/07/17 Range/Units 05:50 05:50 WBC 8.10 (4.23-9.07) K/mm3 RBC 5.42 (4.63-6.08) M/mm3 Hgb 16.8 (13.7-17.5) gm/L Hct 49.3 (40.1-51.0) % MCV 91.0 (79.0-92.2) fl MCH 31.0 (25.7-32.2) pg MCHC 34.1 (32.2-35.5) g/dl RDW Std Deviation 43.8 (35.1-43.9) fL Plt Count 148 L (163-337) K/mm3 MPV 10.5 (9.4-12.3) fl Neut % (Auto) 68.3 H (34.0-67.9) % Lymph % (Auto) 20.2 L (21.8-53.1) % Hayes % (Auto) 9.1 (5.3-12.2) % Eos % (Auto) 2.1 (0.8-7.0) Baso % (Auto) 0.2 (0.1-1.2) % Neut # (Auto) 5.52 H (1.78-5.38) K/mm3 Lymph # (Auto) 1.64 (1.32-3.57) K/mm3 Hayes # (Auto) 0.74 (0.30-0.82) K/mm3 Eos # (Auto) 0.17 (0.04-0.54) K/mm3 Baso # (Auto) 0.02 (0.01-0.08) K/mm3 Sodium 141 (136-145) mEq/L Potassium 4.0 (3.5-5.1) mEq/L Chloride 106 (98-107) mEq/L Carbon Dioxide 23 (21-32) mEq/L Anion Gap 16.0 H (5-15) BUN 15 (7-18) mg/dL Creatinine 1.0 (0.7-1.3) mg/dL Est Cr Clr Drug Dosing 103.54 mL/min Estimated GFR (MDRD) > 60 (>60) mL/min BUN/Creatinine Ratio 15.0 (14-18) Glucose 86 (74-106) mg/dL Calcium 9.3 (8.5-10.1) mg/dL Magnesium 2.2 (1.8-2.4) mg/dl Lipase 351 (73-393) U/L Med Orders - Current: Current Medications Albuterol/Ipratropium (Duoneb 3.0-0.5 Mg/3 Ml) 3 ml NEB Q4H PRN PRN Reason: Shortness Of Breath/wheezing Bisacodyl (Dulcolax) 5 mg PO DAILY PRN PRN Reason: Constipation Chlordiazepoxide HCl (Librium) 25 mg PO Q8H PRN PRN Reason: Withdrawal Symptoms Last Admin: 12/06/17 03:45 Dose: 25 mg Clonidine HCl (Catapres) 0.1 mg PO Q4H PRN PRN Reason: Agitation Docusate Sodium (Colace) 100 mg PO BID PRN PRN Reason: Constipation Folic Acid (Folic Acid) 1 mg PO DAILY [facility] Stop: 12/08/17 09:01 Last Admin: 12/07/17 08:27 Dose: 1 mg Hydralazine HCl (Apresoline) 20 mg IVPUSH Q4H PRN PRN Reason: Hypertension Promethazine HCl 12.5 mg/ (Sodium Chloride) 50.5 mls @ 100 mls/hr IV Q6H PRN PRN Reason: Nausea/Vomiting Ibuprofen (Motrin) 600 mg PO Q6H PRN PRN Reason: Pain (moderate 4-6) Lorazepam (Ativan) 2 mg IVPUSH Q4H PRN PRN Reason: Seizures Lorazepam (Ativan) 0 mg IVPUSH Q4H PRN; Protocol PRN Reason: Withdrawal Symptoms Magnesium Sulfate (Pharmacy To Dose - Magnesium Replacement) 0 dose .XX ASDIRECTED PRN PRN Reason: RX TO WATCH MAG LEVELS Metoprolol Tartrate (Lopressor) 5 mg IVPUSH Q4H PRN PRN Reason: Tachycardia Miscellaneous Information (Remove Patch) 0 ea TRDERM DAILY [facility] Last Admin: 12/07/17 08:28 Dose: 1 ea Morphine Sulfate (Morphine) 2 mg IVPUSH Q4H PRN PRN Reason: Pain Multivitamins (Thera) 1 each PO DAILY [facility] Last Admin: 12/07/17 08:27 Dose: 1 each Nicotine (Habitrol) 21 mg TRDERM DAILY [facility] Last Admin: 12/07/17 08:27 Dose: 21 mg Ondansetron HCl (Zofran) 4 mg IV Q6H PRN PRN Reason: Nausea/Vomiting Oxycodone HCl (Oxycodone) 5 mg PO Q4H PRN PRN Reason: Pain (moderate 4-6) Pantoprazole Sodium (Protonix Iv) 40 mg IV Q12HR [facility] Stop: 12/08/17 09:00 Last Admin: 12/07/17 08:27 Dose: 40 mg Polyethylene Glycol (Miralax) 17 gm PO DAILY PRN PRN Reason: Constipation Potassium Chloride (Pharmacy To Dose - Potassium Replacement) 1 dose .XX ASDIRECTED [facility] Quetiapine Fumarate (Seroquel) 50 mg PO BEDTIME [facility] Last Admin: 12/06/17 20:03 Dose: 50 mg Senna/Docusate Sodium (Senna Plus) 1 tab PO BID PRN PRN Reason: Constipation Sodium Chloride (Saline Flush) 10 ml FLUSH ASDIRECTED PRN PRN Reason: Keep Vein Open Last Admin: 12/05/17 23:05 Dose: 10 ml Thiamine HCl (Vitamin B-1) 100 mg PO DAILY [facility] Last Admin: 12/07/17 08:27 Dose: 100 mg Topiramate (Topamax) 25 mg PO BID [facility] Last Admin: 12/07/17 08:27 Dose: 25 mg Discontinued Medications Hydromorphone HCl (Dilaudid) 0.5 mg IVPUSH Q2H PRN PRN Reason: Pain (severe 7-10) Sodium Chloride (Normal Saline) 1,000 mls @ 999 mls/hr IV ONETIME [facility] Last Admin: 12/05/17 23:03 Dose: 999 mls/hr Sodium Chloride (Normal Saline) 1,000 mls @ 999 mls/hr IV ONETIME [facility] Dextrose/Sodium Chloride (Dextrose 5%-Normal Saline) 1,000 mls @ 125 mls/hr IV ASDIRECTED [facility] Last Admin: 12/06/17 03:53 Dose: 125 mls/hr Potassium Chloride 10 meq/ (Premix) 100 mls @ 100 mls/hr IV Q1H [facility] Stop: 12/06/17 06:29 Last Admin: 12/06/17 06:33 Dose: 100 mls/hr Sodium Chloride (Normal Saline) 1,000 mls @ 100 mls/hr IV ASDIRECTED [facility] Stop: 12/06/17 20:44 Last Admin: 12/06/17 11:33 Dose: 100 mls/hr Pantoprazole Sodium (Protonix Iv) 40 mg .XX ONETIME ONE Stop: 12/06/17 01:58 Last Admin: 12/06/17 03:14 Dose: 40 mg Quetiapine Fumarate (Seroquel) 50 mg PO ONETIME ONE Stop: 12/06/17 02:05 Last Admin: 12/06/17 03:53 Dose: 50 mg Quetiapine Fumarate (Seroquel) 50 mg PO ONETIME ONE Stop: 12/06/17 04:01 Last Admin: 12/06/17 04:12 Dose: Not Given Topiramate (Topamax) 25 mg PO NOW STA Stop: 12/06/17 02:05 Last Admin: 12/06/17 03:45 Dose: 25 mg - Exam General: Alert, Oriented, Cooperative, No Acute Distress HEENT: Pupils Equal, Pupils Reactive, EOMI, Mucous Membr. Moist/Bussey Neck: Supple, Trachea Midline, No JVD, No Thyromegaly Lungs: Clear to Auscultation, Normal Respiratory Effort Cardiovascular: Regular Rate, Regular Rhythm GI/Abdominal Exam: Normal Bowel Sounds, Soft, Non-Tender, No Organomegaly, No Distention, No Abnormal Bruit (Male) Exam: Deferred Back Exam: Normal Inspection, Full Range of Motion Extremities: Normal Inspection, Normal Range of Motion, Non-Tender, No Pedal Edema, Normal Capillary Refill Peripheral Pulses: 3+: Posterior Tibial (L), Posterior Tibial (R), Dorsalis Pedis (L), Dorsalis Pedis (R) Skin: Warm, Dry, Intact Neurological: No New Focal Deficit Psy/Mental Status: Alert, Normal Affect, Normal Mood - Problem List Review Problem List Initiated/Reviewed/Updated: Yes - My Orders Last 24 Hours: My Active Orders 12/06/17 09:00 Folic Acid 1 mg PO DAILY Multivitamins,Therapeutic [Thera] 1 each PO DAILY Nicotine [Habitrol] 21 mg TRDERM DAILY Pantoprazole [ProTONIX IV] 40 mg IV Q12HR Remove Patch 0 ea TRDERM DAILY Thiamine [Vitamin B-1] 100 mg PO DAILY 12/06/17 12:10 Admission Status [Patient Status] [ADT] Routine 12/06/17 21:00 QUEtiapine [SEROquel] 50 mg PO BEDTIME Topiramate [Topamax] 25 mg PO BID 12/08/17 05:11 BASIC METABOLIC PANEL,BMP [CHEM] AM CBC WITH AUTO DIFF [HEME] AM MAGNESIUM [CHEM] AM 12/09/17 05:11 BASIC METABOLIC PANEL,BMP [CHEM] AM MAGNESIUM [CHEM] AM 12/10/17 05:11 BASIC METABOLIC PANEL,BMP [CHEM] AM MAGNESIUM [CHEM] AM 12/11/17 05:11 BASIC METABOLIC PANEL,BMP [CHEM] AM MAGNESIUM [CHEM] AM - Plan Plan:: Assessment: Acute: ETOH Abuse - Hx/o Chronic ETOH Abuse - KATIE level of 0.28 - CIWA protocol: CIWA score is low - Ativan/Seroquel/Clonidine/Topamax - Hydralazine and IVP BB for HR/BP control - Ativan for Abortive Seizure and Withdrawal Symptoms - Dr. Pete recommends Sobriety, AA Consultation, Pastoral Guidance, CD consult for appropriate inpatient treatment, CIWA Protocol, Seroquel 50 mg po QHS for psychosis prophylaxis, Sleep Initiation and Maintenance, Anxiety Reduction, Mood Stability, and Clarity of Thought Tobacco Dependence - Nicotine patch - Counseled on Smoking Cessation Resolved: S/p Mild Hypokalemia - K 3.2-->4.1 - 2/2 inadequate intake - Replete and monitor S/p Mild Alcohol Pancreatitis - Lipase 655 ---> 351 - 2/2 ETOH Abuse - Supportive Care - Resume regular diet Plan: He remains clinically stable Continue MVI, Folic Acid, Thiamine and CIWA protocol Ativan for Abortive Seizure and Withdrawal Symptoms Continue regular diet PRN meds for Withdrawal Symptoms Aspiration/Seizure Precautions SW/CM d/c planning SA recommend inpatient treatment with possible placement to [facility] or [facility]. Psych consulted Code Status: 1
--- NOTE | 2017-12-07 12:49 | CONS ---
CONSULTING PHYSICIAN: Ramu Dickens LAC DATE OF CONSULTATION: 12/07/2017 ADDENDUM: TIME: 10:21 a.m. HUSSAIN Campbell contacted me today at approximately 8:40 a.m. to discuss the patient's consultation from the previous evening. She reports that the patient's called her and stated that the patient is drinking all day and night daily, and his subsequent destructive behavior is threatening the safety of the family as well as her unborn child. The patient's reports that the family is afraid and desperate for professional intervention. Based on this new information, a petition for involuntary commitment will be exercised on December 07, for any admitting facility if no private facilities are available, the [facility] would be her only option. HUSSAIN Campbell, will be arranging admittance and transportation to any admitting facility. CHARLI /[id number]
--- NOTE | 2017-12-07 12:49 | CONS ---
CONSULTING PHYSICIAN: Ramu Dickens LAC DATE OF CONSULTATION: 12/06/2017 TIME AND DATE: It is 10:45 p.m. on 12/06/2017. IDENTIFICATION: The patient is a 37-year-old male, who was admitted to [facility] Intensive Care Unit on 12/05/2017. An Alcohol and Drug consultation was requested by his Medical Treatment team. SOURCES OF INFORMATION: Hospital records, background research, prescription drug monitoring report, and staff report. HISTORY OF PRESENT ILLNESS: The patient is a 37-year-old male, admitted to [facility] for detoxification secondary to alcohol use disorder, severe. The patient reports that he has been drinking approximately a case of beer a day for the last six months. His admitting KATIE was 0.28, and he is seeking medical detox and assistance with substance abuse treatment placement. PSYCHOSOCIAL HISTORY: The patient reports that he was born and raised in [place], [place], by his biological parents who were still together. He has one half-brother and one half-sister, and he is the youngest. 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 The patient was at age 30. He lives together with his and three children. The patient denies any secondary education or experience. He enjoys anything outdoors for fun, and describes his spiritual belief as Yarsanism. SUBSTANCE ABUSE HISTORY: The patient reports that both his mother and father drank beer while he was growing up. However, he does not consider either one of them is having a problem with alcohol. He states, "my dad would drink out in the garage on weekends with his friends, but I don't drink like him. I pound beer after beer until I pass out." The patient reports that he started drinking while in high school with friends at about age 17, drinking on the weekends approximately a 12- pack per occasion, and this pattern continued until he was about 22 when he could go to liquor store. He states he would buy a case of beer every two days, and that pattern continued for the next 15 years. He reports "I enjoyed it and had fun. My friends and I would green party, and it was normal." The patient reports that from 2008 to 2013 while he worked at [employer], he would come home every night after work and drink a 12-pack, and on the weekends, a case of beer daily. His favorite is Coors Light. This pattern continued until he lost his job in 2013. Since that time, he states he can count on one hand the days he has been sober. The patient also reports that his typical pattern of drinking is waking up at 7 a.m., and opening a can of Coors Light. He will drink until about 11 a.m., and then take a nap. When he wakes up, he will drink the rest of the day until he passes out. He also reports that there are some exceptions to that on days when his tolerance is particularly high. On those days, he just drinks all day and all night. He reports that he is not a mean drunk, but he will stumble and fall, and basically lose all bodily coordination. In the morning, he wakes up feeling woozy and shaky, so he starts to drink. He states that on 2016, he decided that it was time to quit drinking as his "insides hurt so bad." He was able to stay sober for approximately four days. He denies experiencing delirium tremens, but it was manageable with Ativan, and was not accompanied by perceptual disturbance. The patient admitted himself to [facility] on 12/05/2017 because he states he has been drinking instead of eating. However, one of the reasons he is not able to eat, is because his stomach hurts. He states that he does not drink coffee in the morning because it irritates his stomach, and that is why he just drinks beer instead. The patient is reporting that his marriage has been deteriorating as he has not been able to work, and that he has gone through about five different jobs in the last several months because he will get the job, go home, celebrate, and never show up to work the next day. The patient has not had any substance abuse education or treatment in the past, and has only one alcohol-related offense, an MIP while he was in high school. The patient denies that anyone in his family suffers from alcohol or drug dependence except his brother, whom he states is currently drinking himself to somewhere in [place]. DIAGNOSES: The patient meets DSM-V criteria for the following diagnoses: 1. F10.20, alcohol use disorder, severe. 2. F10.239, alcohol withdrawal without perceptual disturbance. 3. F10.229, alcohol intoxication. 4. F17.200 tobacco use disorder, severe. ASAM DIMENSIONS: 1. Dimension 1: Score 2. The patient has some difficulty tolerating and coping with withdrawal discomfort, but responds to support and treatment. The patient displays moderate signs and symptoms of moderate risk of severe withdrawal. 2. Dimension 2: Score 1. The patient tolerates and nito with physical discomfort, and is able to get the services he needs. He presents with mild pancreatitis. 3. Dimension 3: The patient has difficulty with impulse control and lacks coping skills. He appears to have difficulty functioning in significant life areas; however, is able to participate in most treatment activities. The patient is not displaying symptoms of emotional, behavioral, or cognitive problems. 4. Dimension 4: Score 2. The patient is motivated with active reinforcement to explore treatment strategies for change. However, he verbalizes that he is not able to achieve sobriety without professional intervention. 5. Dimension 5: Score 3. The patient has little recognition and understanding of relapse and recidivism issues, and displays high vulnerability for further substance use. 6. Dimension 6: Score 3. The patient is not engaged in structured meaningful activity. He is unemployed and his marriage is disturbed because of his alcohol use. ASSESSMENT SUMMARY: The patient appears to be a very nice young man, who battles a possible biologically driven addiction. He has been drinking beer excessively since age 17 for the past 20 years, and in the past four years, his drinking has become pervasive. The patient presents in late stage 3 alcoholism, manifesting with daily drinking, and an inability to achieve sobriety without professional intervention, deep remorse and guilt, yet psychologically and physically driven to continue drinking. The patient is asking for help, and meets ASAM criteria for a level 3.1 clinically managed low-intensity residential treatment. Dr. Cuenca was consulted as well as Dr. Pete, who are both in agreement with inpatient treatment. The patient is verbalizing that left to his own volition, he may not be able to follow through with his desire for treatment, which is a direct manifestation of stage 3 alcoholism. Although imminent danger criteria is not being met, there is reasonable belief that without professional intervention, this patient will continue to drink and experience further deterioration of bodily function. It is important to intervene at this stage of alcoholism before the patient crosses over to the possible failed outcome that manifests in stage IV alcoholism. HUSSAIN Campbell, will be consulted on 12/07/2017, regarding availabilities of residential treatment facilities. A petition for involuntary commitment will be considered at that time as an intervention tool to assist the patient in reaching his goal of sobriety. RECOMMENDATIONS: Level 3.1 clinically managed, low intensity residential treatment at any admitting facility. MMODAL /[id number]
--- NOTE | 2017-12-07 13:33 | PCM.DCSUM1 ---
Discharge Summary - Hospital Course Brief History: This is a 37-year-old white male with past medical history of impaired vision, hypertension, anxiety, and chronic alcohol abuse who was brought in by family for treatment of acute alcoholism. He was admitted for alcohol detoxification. - Discharge Data Discharge Date: 12/07/17 Discharge Disposition: DC/Tfer to Other 70 Condition: Good - Discharge Diagnosis/Problem(s) (1) Alcohol abuse with physiological dependence SNOMED Code(s): 84654633 ICD Code: F10.20 - ALCOHOL DEPENDENCE, UNCOMPLICATED Status: Chronic (2) Elevated lipase SNOMED Code(s): 717977778 ICD Code: R74.8 - ABNORMAL LEVELS OF OTHER SERUM ENZYMES Status: Resolved (3) Alcohol-induced pancreatitis SNOMED Code(s): 846566939 ICD Code: K85.20 - ALCOHOL INDUCED ACUTE PANCREATITIS WITHOUT NECROSIS OR INFCT Status: Resolved Qualifiers: Chronicity: acute Acute pancreatitis complication: no infection or necrosis Qualified Code(s): K85.20 - Alcohol induced acute pancreatitis without necrosis or infection (4) Hypokalemia due to inadequate potassium intake SNOMED Code(s): 68361841 ICD Code: E87.6 - HYPOKALEMIA Status: Acute (5) Anxiety SNOMED Code(s): 44051040 ICD Code: F41.9 - ANXIETY DISORDER, UNSPECIFIED Status: Acute - Patient Summary/Data Operative Procedure(s) Performed: None Complications: None Consults: Consultations 12/06/17 02:01 Consult to Case Management [CONS] Routine Consult to Physician [CONS] Routine Consult to Filament Coil Winder [CONS] Routine Consult to Spiritual Care [CONS] Routine 12/06/17 02:25 Consult for Substance Abuse [CONS] Routine Labs Pending at D/C: None Recommended Follow-up Testing/Procedures: None Planned Operative Procedure(s) after DC: None Hospital Course: Patient was primarily admitted for alcohol detoxification. He carried a past hx/ o long standing alcohol abuse. Her had been drinking heavily since he lost his job about 2 years ago. Patient was brought in by family to get help with his alcoholism. Upon admission, he was placed on CIWA protocol and supportive care. Slowly, he improved on this regiment. His hospital course was uncomplicated. Once clinically stable, he was referred for SAC and Tele-psych for further evaluation. After patient was medically cleared, he was committed for inpatient treatment to [facility] under the services of a provider by the name of Maria R. 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 - Patient Instructions Diet: Usual Diet as Tolerated Activity: As Tolerated Driving: Do Not Drive Showering/Bathing: May Shower Notify Provider of: Fever, Increased Pain, Nausea and/or Vomiting Other/Special Instructions: - Transfer to [facility] for inpatient chemical rehab. - Follow up with your family doctor in 1 week after rehab. - Recommend you follow up with Ramu Dickens after rehab - Discharge Plan Home Medications: Home Meds . [No Known Home Meds] 10/28/17 [History] Patient Handouts: Smoking Cessation, Tips for Success, [id number], Alcohol Intoxication, [id number], Acute Pancreatitis Referrals: Nataliia Figueroa PA-C [Primary Care Provider] - (Follow-up with your primary doctor to get a TDaP vaccine.) - Discharge Summary/Plan Comment DC Time >30 min.: Yes (45 mins) Discharge Summary/Plan Comment: Transfer to [facility] for inpatient chemical rehabilitation - General Info Date of Service: 12/07/17 Admission Dx/Problem (Free Text: Alcohol Withdrawal Subjective Update: Follow Up Functional Status: Reports: Pain Controlled, Tolerating Diet, Ambulating, Urinating. Denies: New Symptoms - Review of Systems General: Denies: Fever, Weakness, Fatigue, Malaise, Chills HEENT: Reports: No Symptoms Pulmonary: Denies: Shortness of Breath, Pleuritic Chest Pain, Cough Cardiovascular: Denies: Chest Pain, Palpitations, Dyspnea on Exertion, Lightheadedness Gastrointestinal: Reports: Flatus. Denies: Abdominal Pain, Constipation, Decreased Appetite, Diarrhea, Nausea, Vomiting Genitourinary: Reports: No Symptoms Musculoskeletal: Reports: No Symptoms Skin: Denies: Cyanosis, Jaundice, Mottled, Pallor, Diaphoresis Neurological: Denies: Confusion, Dizziness, Seizure, Tremors, Difficulty Walking , Weakness, Change in Speech, Gait Disturbance Psychiatric: Denies: Confusion, Depression, Mood Lability, Anxiety, Agitation, Cravings, Hallucinations, Suicidal Ideation, Homicidal Ideation Systems Review Comment: No overnight or acute issues. He is doing relatively well. He slept really good and has no complaints this morning. - Patient Data Vitals - Most Recent: Last Vital Signs Temp 36.8 C 12/07/17 08:44 Pulse 58 L 12/07/17 04:00 Resp 16 12/07/17 08:44 BP 144/103 H 12/07/17 08:44 Pulse Ox 99 12/07/17 08:44 Weight - Most Recent: 71.685 kg I&O - Last 24 hours: Intake & Output 12/06/17 12/07/17 12/07/17 22:59 06:59 14:59 Intake Total 2766 380 Output Total 1000 Balance 2766 -430 Lab Results - Last 24 hrs: Laboratory Results - last 24 hr 12/07/17 12/07/17 Range/Units 05:50 05:50 WBC 8.10 (4.23-9.07) K/mm3 RBC 5.42 (4.63-6.08) M/mm3 Hgb 16.8 (13.7-17.5) gm/L Hct 49.3 (40.1-51.0) % MCV 91.0 (79.0-92.2) fl MCH 31.0 (25.7-32.2) pg MCHC 34.1 (32.2-35.5) g/dl RDW Std Deviation 43.8 (35.1-43.9) fL Plt Count 148 L (163-337) K/mm3 MPV 10.5 (9.4-12.3) fl Neut % (Auto) 68.3 H (34.0-67.9) % Lymph % (Auto) 20.2 L (21.8-53.1) % [place] % (Auto) 9.1 (5.3-12.2) % Eos % (Auto) 2.1 (0.8-7.0) Baso % (Auto) 0.2 (0.1-1.2) % Neut # (Auto) 5.52 H (1.78-5.38) K/mm3 Lymph # (Auto) 1.64 (1.32-3.57) K/mm3 [place] # (Auto) 0.74 (0.30-0.82) K/mm3 Eos # (Auto) 0.17 (0.04-0.54) K/mm3 Baso # (Auto) 0.02 (0.01-0.08) K/mm3 Sodium 141 (136-145) mEq/L Potassium 4.0 (3.5-5.1) mEq/L Chloride 106 (98-107) mEq/L Carbon Dioxide 23 (21-32) mEq/L Anion Gap 16.0 H (5-15) BUN 15 (7-18) mg/dL Creatinine 1.0 (0.7-1.3) mg/dL Est Cr Clr Drug Dosing 103.54 mL/min Estimated GFR (MDRD) > 60 (>60) mL/min BUN/Creatinine Ratio 15.0 (14-18) Glucose 86 (74-106) mg/dL Calcium 9.3 (8.5-10.1) mg/dL Magnesium 2.2 (1.8-2.4) mg/dl Lipase 351 (73-393) U/L Med Orders - Current: Current Medications Albuterol/Ipratropium (Duoneb 3.0-0.5 Mg/3 Ml) 3 ml NEB Q4H PRN PRN Reason: Shortness Of Breath/wheezing Bisacodyl (Dulcolax) 5 mg PO DAILY PRN PRN Reason: Constipation Chlordiazepoxide HCl (Librium) 25 mg PO Q8H PRN PRN Reason: Withdrawal Symptoms Last Admin: 12/06/17 03:45 Dose: 25 mg Clonidine HCl (Catapres) 0.1 mg PO Q4H PRN PRN Reason: Agitation Docusate Sodium (Colace) 100 mg PO BID PRN PRN Reason: Constipation Folic Acid (Folic Acid) 1 mg PO DAILY MARY ANN Stop: 12/08/17 09:01 Last Admin: 12/07/17 08:27 Dose: 1 mg Hydralazine HCl (Apresoline) 20 mg IVPUSH Q4H PRN PRN Reason: Hypertension Promethazine HCl 12.5 mg/ (Sodium Chloride) 50.5 mls @ 100 mls/hr IV Q6H PRN PRN Reason: Nausea/Vomiting Ibuprofen (Motrin) 600 mg PO Q6H PRN PRN Reason: Pain (moderate 4-6) Lorazepam (Ativan) 2 mg IVPUSH Q4H PRN PRN Reason: Seizures Lorazepam (Ativan) 0 mg IVPUSH Q4H PRN; Protocol PRN Reason: Withdrawal Symptoms Magnesium Sulfate (Pharmacy To Dose - Magnesium Replacement) 0 dose .XX ASDIRECTED PRN PRN Reason: RX TO WATCH MAG LEVELS Metoprolol Tartrate (Lopressor) 5 mg IVPUSH Q4H PRN PRN Reason: Tachycardia Miscellaneous Information (Remove Patch) 0 ea TRDERM DAILY [facility] Last Admin: 12/07/17 08:28 Dose: 1 ea Morphine Sulfate (Morphine) 2 mg IVPUSH Q4H PRN PRN Reason: Pain Multivitamins (Thera) 1 each PO DAILY [facility] Last Admin: 12/07/17 08:27 Dose: 1 each Nicotine (Habitrol) 21 mg TRDERM DAILY [facility] Last Admin: 12/07/17 08:27 Dose: 21 mg Ondansetron HCl (Zofran) 4 mg IV Q6H PRN PRN Reason: Nausea/Vomiting Oxycodone HCl (Oxycodone) 5 mg PO Q4H PRN PRN Reason: Pain (moderate 4-6) Pantoprazole Sodium (Protonix Iv) 40 mg IV Q12HR [facility] Stop: 12/08/17 09:00 Last Admin: 12/07/17 08:27 Dose: 40 mg Polyethylene Glycol (Miralax) 17 gm PO DAILY PRN PRN Reason: Constipation Potassium Chloride (Pharmacy To Dose - Potassium Replacement) 1 dose .XX ASDIRECTED [facility] Quetiapine Fumarate (Seroquel) 50 mg PO BEDTIME [facility] Last Admin: 12/06/17 20:03 Dose: 50 mg Senna/Docusate Sodium (Senna Plus) 1 tab PO BID PRN PRN Reason: Constipation Sodium Chloride (Saline Flush) 10 ml FLUSH ASDIRECTED PRN PRN Reason: Keep Vein Open Last Admin: 12/05/17 23:05 Dose: 10 ml Thiamine HCl (Vitamin B-1) 100 mg PO DAILY [facility] Last Admin: 12/07/17 08:27 Dose: 100 mg Topiramate (Topamax) 25 mg PO BID [facility] Last Admin: 12/07/17 08:27 Dose: 25 mg Discontinued Medications Hydromorphone HCl (Dilaudid) 0.5 mg IVPUSH Q2H PRN PRN Reason: Pain (severe 7-10) Sodium Chloride (Normal Saline) 1,000 mls @ 999 mls/hr IV ONETIME [facility] Last Admin: 12/05/17 23:03 Dose: 999 mls/hr Sodium Chloride (Normal Saline) 1,000 mls @ 999 mls/hr IV ONETIME MARY ANN Dextrose/Sodium Chloride (Dextrose 5%-Normal Saline) 1,000 mls @ 125 mls/hr IV ASDIRECTED MARY ANN Last Admin: 12/06/17 03:53 Dose: 125 mls/hr Potassium Chloride 10 meq/ (Premix) 100 mls @ 100 mls/hr IV Q1H MARY ANN Stop: 12/06/17 06:29 Last Admin: 12/06/17 06:33 Dose: 100 mls/hr Sodium Chloride (Normal Saline) 1,000 mls @ 100 mls/hr IV ASDIRECTED MARY ANN Stop: 12/06/17 20:44 Last Admin: 12/06/17 11:33 Dose: 100 mls/hr Pantoprazole Sodium (Protonix Iv) 40 mg .XX ONETIME ONE Stop: 12/06/17 01:58 Last Admin: 12/06/17 03:14 Dose: 40 mg Quetiapine Fumarate (Seroquel) 50 mg PO ONETIME ONE Stop: 12/06/17 02:05 Last Admin: 12/06/17 03:53 Dose: 50 mg Quetiapine Fumarate (Seroquel) 50 mg PO ONETIME ONE Stop: 12/06/17 04:01 Last Admin: 12/06/17 04:12 Dose: Not Given Topiramate (Topamax) 25 mg PO NOW STA Stop: 12/06/17 02:05 Last Admin: 12/06/17 03:45 Dose: 25 mg - Exam General: Reports: Alert, Oriented, Cooperative, No Acute Distress HEENT: Reports: Pupils Equal, Pupils Reactive, EOMI, Mucous Membr. Moist/[employer] [employer] [place]: Reports: Supple, Trachea Midline, No JVD, No Thyromegaly Lungs: Reports: Clear to Auscultation, Normal Respiratory Effort Cardiovascular: Reports: Regular Rate, Regular Rhythm GI/Abdominal Exam: Normal Bowel Sounds, Soft, Non-Tender, No Organomegaly, No Distention, No Abnormal Bruit, No Mass (Male) Exam: Deferred Rectal (Males) Exam: Deferred Back Exam: Reports: Normal Inspection, Full Range of Motion Extremities: Normal Inspection, Normal Range of Motion, Non-Tender, No Pedal Edema, Normal Capillary Refill Skin: Reports: Warm, Dry, Intact Neurological: Reports: No New Focal Deficit Psy/Mental Status: Reports: Alert, Normal Affect, Normal Mood. Denies: Anxious , Depressed, Agitated, Suicidal Ideation, Homicidal Ideation, Hallucinations, Withdrawal Symptoms *Q Meaningful Use (DIS) - VTE *Q VTE Criteria *Q: - Stroke *Q Stroke Criteria *Q: - AMI *Q AMI Criteria *Q:
[2017-12-07 14:32] VITALS: BP 154/106
== END 2017-12-07 14:19 | disposition other institution (70) ==
LOC: JD.ED 22:24 → JD.ICU 12-06 01:56 → INTOOBSV 12-06 01:56
PROVIDERS: ADMIT Internal Medicine; ATTEND Internal Medicine
DX: F10.20 Alcohol dependence, uncomplicated (principal); R74.8 Abnormal levels of other serum enzymes; K85.20 Alcohol induced acute pancreatitis without necrosis or infection; I10 Essential (primary) hypertension; E87.6 Hypokalemia; F41.9 Anxiety disorder, unspecified; Z88.8 Allergy status to other drugs, medicaments and biological substances; Z90.49 Acquired absence of other specified parts of digestive tract; F17.210 Nicotine dependence, cigarettes, uncomplicated; Z79.899 Other long term (current) drug therapy
CPT/HCPCS: 36415; 80048; 80053; 80306; 83690; 83735; 85025; 96361; 96365; 96366; 96375; 96376; 99285; A9270; C9113; G0378; G0480; J3480; J7040; J7042; J7050; 99217; 99220

== ENCOUNTER 2022-04-18 08:28 | Emergency (ER) | payer MEDICAID, OTHER ==
[2022-04-18 08:40] VITALS: BP 144/95; PULSE 68
[2022-04-18] MEDS ORDERED: Lidocaine 1% with EPINEPHrine 1:100,000 20 ML MDV INJECT ONE (08:59)
== END 2022-04-18 09:48 | disposition home or self-care (01) ==
LOC: JD.ED 08:28
DX: S51.812A Laceration without foreign body of left forearm, initial encounter (principal); I10 Essential (primary) hypertension; F17.210 Nicotine dependence, cigarettes, uncomplicated; Z88.5 Allergy status to narcotic agent; W26.0XXA Contact with knife, initial encounter
CPT/HCPCS: 12001; 99282-25; 99283

== ENCOUNTER 2023-09-16 20:37 | Emergency (ER) | payer MEDICAID, OTHER ==
[2023-09-16] MEDS ORDERED: LORazepam 2 MG/ML SDV IVPUSH ONE (21:01)
[2023-09-16 22:27] VITALS: BP 141/85; PULSE 73
== END 2023-09-16 22:21 | disposition home or self-care (01) ==
LOC: JD.ED 20:37
DX: S62.524A Nondisplaced fracture of distal phalanx of right thumb, initial encounter for closed fracture (principal); I10 Essential (primary) hypertension; F17.210 Nicotine dependence, cigarettes, uncomplicated; Z88.5 Allergy status to narcotic agent; W23.1XXA Caught, crushed, jammed, or pinched between stationary objects, initial encounter
CPT/HCPCS: 11740; 73140-26-FA; 73140-FA; 99283-25; 99284

== ENCOUNTER 2025-07-01 22:35 | Inpatient (IN) | payer SELFPAY ==
[2025-07-01] MEDS ORDERED: Sodium Chloride 0.9% 10 ML Syringe FLUSH PRN (23:37)
[2025-07-01 23:46] LABS: BASOPHILS ABSOLUTE AUTO 0.0 K/mm3 (0.0-0.2); BASOPHILS PERCENT AUTO 0.4 % (0.0-1.0); EOSINOPHILS ABSOLUTE AUTO 0.2 K/mm3 (0.0-0.4); EOSINOPHILS PERCENT AUTO 2.6 % (0.0-6.0); IMMATURE GRAN ABSOLUTE AUTO 0.04 K/mm3 (0.00-0.05); IMMATURE GRAN PERCENT AUTO 0.5 % (0.0-0.4); LYMPHOCYTES ABSOLUTE AUTO 3.6 K/mm3 (1.0-4.8); LYMPHOCYTES PERCENT AUTO 41.9 % (24.0-44.0); MEAN PLATELET VOLUME 10.1 fl (9.4-12.4); MONOCYTES ABSOLUTE AUTO 1.1 K/mm3 (0.0-0.8); MONOCYTES PERCENT AUTO 12.6 % (0.0-8.0); NEUTROPHILS ABSOLUTE AUTO 3.6 K/mm3 (1.8-7.7); NEUTROPHILS PERCENT AUTO 42.0 % (41.0-71.0); NRBC ABSOLUTE 0.00 (0.00-0.02); NRBC PERCENT 0.0 % (0.0-0.2); PLATELET COUNT,PLT 174 K/mm3 (150-400); RED BLOOD CELL COUNT 5.80 M/mm3 (4.52-5.90); WHITE BLOOD CELL COUNT,WBC 8.57 K/mm3 (3.9-11.3)
[2025-07-02 00:01] LABS: A/G RATIO 1.2 (1-2); ALANINE AMINOTRANSFERASE,ALT 59.0 U/L (16-63); ASPARTATE AMNIOTRANSFERASE,AST 34.0 U/L (15-37); BILIRUBIN TOTAL 1.3 mg/dL (0.2-1.0); BLOOD UREA NITROGEN,BUN 8.0 mg/dL (7-18); CARBON DIOXIDE,CO2 25.0 mEq/L (21-32); CHLORIDE,CL 101.0 mEq/L (98-107); CREATININE 1.0 mg/dL (0.7-1.3); EST CRCL DRUG DOSING (CG) 98.32 mL/min; ESTIMATED GFR 96.0 mL/min (>60); ETHANOL BLOOD MEDICAL 0.25 gm% (0.00); GLUCOSE RANDOM 113.0 mg/dL (70-99); POTASSIUM,K 3.7 mEq/L (3.5-5.1); PROTEIN TOTAL,TP 7.4 g/dl (6.4-8.2); SODIUM,NA 139.0 mEq/L (136-145)
[2025-07-02 01:29] LABS: BUPRENORPHINE SCREEN,URINE NEGATIVE (CUTOFF=10); METHADONE SCREEN, URINE NEGATIVE (CUT0FF=200); METHAMPHETAMINES SCREEN, URINE NEGATIVE (CUTOFF=500); OXYCODONE SCREEN,URINE NEGATIVE (CUT0FF=100); THC SCREEN,URINE 20 NG/ML NEGATIVE (CUTOFF=50)
[2025-07-02 01:32] LABS: AMPHETAMINES SCREEN, URINE NEGATIVE (CUTOFF=500)
[2025-07-02] MEDS: LORazepam 2 MG/ML SDV IVPUSH ONE (07:37)
[2025-07-02] MEDS ORDERED: Ondansetron 4 MG/2 ML SDV IV PRN (07:52)
[2025-07-02] MEDS ORDERED: LORazepam 2 MG/ML SDV IV PRN (07:55)
[2025-07-02 15:23] LABS: APPEARANCE,URINE CLEAR (Clear); GLUCOSE,URINE NEGATIVE (Negative); OCCULT BLOOD,URINE NEGATIVE (Negative)
[2025-07-02 15:34] LABS: SQUAMOUS EPITHELIAL CELLS,UR 0-5 /hpf (0-5)
[2025-07-03 04:41] LABS: BASOPHILS ABSOLUTE AUTO 0.0 K/mm3 (0.0-0.2); BASOPHILS PERCENT AUTO 0.3 % (0.0-1.0); EOSINOPHILS ABSOLUTE AUTO 0.1 K/mm3 (0.0-0.4); EOSINOPHILS PERCENT AUTO 1.8 % (0.0-6.0); IMMATURE GRAN ABSOLUTE AUTO 0.03 K/mm3 (0.00-0.05); IMMATURE GRAN PERCENT AUTO 0.4 % (0.0-0.4); LYMPHOCYTES ABSOLUTE AUTO 2.0 K/mm3 (1.0-4.8); LYMPHOCYTES PERCENT AUTO 25.4 % (24.0-44.0); MEAN PLATELET VOLUME 10.0 fl (9.4-12.4); MONOCYTES ABSOLUTE AUTO 1.0 K/mm3 (0.0-0.8); MONOCYTES PERCENT AUTO 13.2 % (0.0-8.0); NEUTROPHILS ABSOLUTE AUTO 4.5 K/mm3 (1.8-7.7); NEUTROPHILS PERCENT AUTO 58.9 % (41.0-71.0); NRBC ABSOLUTE 0.00 (0.00-0.02); NRBC PERCENT 0.0 % (0.0-0.2); PLATELET COUNT,PLT 123 K/mm3 (150-400); RED BLOOD CELL COUNT 5.08 M/mm3 (4.52-5.90); WHITE BLOOD CELL COUNT,WBC 7.68 K/mm3 (3.9-11.3)
[2025-07-03 05:06] LABS: A/G RATIO 1.2 (1-2); ALANINE AMINOTRANSFERASE,ALT 54.0 U/L (16-63); ASPARTATE AMNIOTRANSFERASE,AST 34.0 U/L (15-37); BILIRUBIN TOTAL 3.1 mg/dL (0.2-1.0); BLOOD UREA NITROGEN,BUN 11.0 mg/dL (7-18); CARBON DIOXIDE,CO2 27.0 mEq/L (21-32); CHLORIDE,CL 106.0 mEq/L (98-107); CREATININE 0.8 mg/dL (0.7-1.3); EST CRCL DRUG DOSING (CG) 124.43 mL/min; ESTIMATED GFR 113.0 mL/min (>60); GLUCOSE RANDOM 84.0 mg/dL (70-99); PHOSPHORUS 4.3 mg/dL (2.6-4.7); POTASSIUM,K 3.7 mEq/L (3.5-5.1); PROTEIN TOTAL,TP 5.9 g/dl (6.4-8.2); SODIUM,NA 141.0 mEq/L (136-145)
[2025-07-03] MEDS: LORazepam 2 MG/ML SDV IV PRN (10:58)
[2025-07-04 05:31] LABS: BASOPHILS ABSOLUTE AUTO 0.0 K/mm3 (0.0-0.2); BASOPHILS PERCENT AUTO 0.3 % (0.0-1.0); EOSINOPHILS ABSOLUTE AUTO 0.2 K/mm3 (0.0-0.4); EOSINOPHILS PERCENT AUTO 2.8 % (0.0-6.0); IMMATURE GRAN ABSOLUTE AUTO 0.05 K/mm3 (0.00-0.05); IMMATURE GRAN PERCENT AUTO 0.8 % (0.0-0.4); LYMPHOCYTES ABSOLUTE AUTO 1.7 K/mm3 (1.0-4.8); LYMPHOCYTES PERCENT AUTO 26.0 % (24.0-44.0); MEAN PLATELET VOLUME 9.9 fl (9.4-12.4); MONOCYTES ABSOLUTE AUTO 0.8 K/mm3 (0.0-0.8); MONOCYTES PERCENT AUTO 12.9 % (0.0-8.0); NEUTROPHILS ABSOLUTE AUTO 3.7 K/mm3 (1.8-7.7); NEUTROPHILS PERCENT AUTO 57.2 % (41.0-71.0); NRBC ABSOLUTE 0.00 (0.00-0.02); NRBC PERCENT 0.0 % (0.0-0.2); PLATELET COUNT,PLT 117 K/mm3 (150-400); RED BLOOD CELL COUNT 4.80 M/mm3 (4.52-5.90); WHITE BLOOD CELL COUNT,WBC 6.49 K/mm3 (3.9-11.3)
[2025-07-04 05:54] LABS: A/G RATIO 1.1 (1-2); ALANINE AMINOTRANSFERASE,ALT 50.0 U/L (16-63); ASPARTATE AMNIOTRANSFERASE,AST 28.0 U/L (15-37); BILIRUBIN TOTAL 2.5 mg/dL (0.2-1.0); BLOOD UREA NITROGEN,BUN 9.0 mg/dL (7-18); CARBON DIOXIDE,CO2 27.0 mEq/L (21-32); CHLORIDE,CL 108.0 mEq/L (98-107); CREATININE 0.9 mg/dL (0.7-1.3); EST CRCL DRUG DOSING (CG) 110.74 mL/min; ESTIMATED GFR 109.0 mL/min (>60); GLUCOSE RANDOM 92.0 mg/dL (70-99); PHOSPHORUS 4.3 mg/dL (2.6-4.7); POTASSIUM,K 3.8 mEq/L (3.5-5.1); PROTEIN TOTAL,TP 5.9 g/dl (6.4-8.2); SODIUM,NA 143.0 mEq/L (136-145)
[2025-07-04 09:32] VITALS: BP 136/79; PULSE 66
== END 2025-07-04 09:55 | disposition home or self-care (01) | DRG 897 ==
LOC: JD.ED 22:35 → JD.ICU 07-02 06:38
PROVIDERS: ADMIT Family Medicine; ATTEND Family Medicine
PROC: HZ2ZZZZ Detoxification Services for Substance Abuse Treatment (ICD-10-PCS; principal; 2025-07-02)
DX: F10.239 Alcohol dependence with withdrawal, unspecified (principal); E87.29 Other acidosis; E86.0 Dehydration; F17.200 Nicotine dependence, unspecified, uncomplicated; I10 Essential (primary) hypertension; H54.7 Unspecified visual loss; F41.9 Anxiety disorder, unspecified; Z86.16 Personal history of COVID-19; Z90.49 Acquired absence of other specified parts of digestive tract; Z98.890 Other specified postprocedural states; Z88.8 Allergy status to other drugs, medicaments and biological substances
CPT/HCPCS: 36415; 80053; 80306; 80307; 81001; 83605; 83735; 84100; 85025; 93005; 93010; 96360; 99285; 99285-25; A9270-GY; J1650; J2060; J7030

== ENCOUNTER 2025-07-07 08:11 | Emergency (ER) | payer SELFPAY ==
[2025-07-07] MEDS: Ondansetron 4 MG/2 ML SDV IVPUSH ONE (09:05)
[2025-07-07 09:21] LABS: BASOPHILS ABSOLUTE AUTO 0.0 K/mm3 (0.0-0.2); BASOPHILS PERCENT AUTO 0.1 % (0.0-1.0); EOSINOPHILS ABSOLUTE AUTO 0.2 K/mm3 (0.0-0.4); EOSINOPHILS PERCENT AUTO 1.9 % (0.0-6.0); IMMATURE GRAN ABSOLUTE AUTO 0.03 K/mm3 (0.00-0.05); IMMATURE GRAN PERCENT AUTO 0.4 % (0.0-0.4); LYMPHOCYTES ABSOLUTE AUTO 1.6 K/mm3 (1.0-4.8); LYMPHOCYTES PERCENT AUTO 20.2 % (24.0-44.0); MEAN PLATELET VOLUME 9.9 fl (9.4-12.4); MONOCYTES ABSOLUTE AUTO 0.9 K/mm3 (0.0-0.8); MONOCYTES PERCENT AUTO 11.5 % (0.0-8.0); NEUTROPHILS ABSOLUTE AUTO 5.3 K/mm3 (1.8-7.7); NEUTROPHILS PERCENT AUTO 65.9 % (41.0-71.0); NRBC ABSOLUTE 0.00 (0.00-0.02); NRBC PERCENT 0.0 % (0.0-0.2); PLATELET COUNT,PLT 148 K/mm3 (150-400); RED BLOOD CELL COUNT 5.23 M/mm3 (4.52-5.90); WHITE BLOOD CELL COUNT,WBC 8.07 K/mm3 (3.9-11.3)
[2025-07-07 09:39] LABS: INR 1.01
[2025-07-07 09:42] LABS: A/G RATIO 1.1 (1-2); ALANINE AMINOTRANSFERASE,ALT 65.0 U/L (16-63); ASPARTATE AMNIOTRANSFERASE,AST 34.0 U/L (15-37); BILIRUBIN TOTAL 1.3 mg/dL (0.2-1.0); BLOOD UREA NITROGEN,BUN 7.0 mg/dL (7-18); CARBON DIOXIDE,CO2 27.0 mEq/L (21-32); CHLORIDE,CL 105.0 mEq/L (98-107); CREATINE KINASE,CK 80.0 U/L (39-308); CREATININE 1.0 mg/dL (0.7-1.3); EST CRCL DRUG DOSING (CG) 99.29 mL/min; ESTIMATED GFR 96.0 mL/min (>60); GLUCOSE RANDOM 138.0 mg/dL (70-99); POTASSIUM,K 3.9 mEq/L (3.5-5.1); PROTEIN TOTAL,TP 7.0 g/dl (6.4-8.2); SODIUM,NA 141.0 mEq/L (136-145)
[2025-07-07 09:45] LABS: ETHANOL BLOOD MEDICAL 0.0 gm% (0.00)
[2025-07-07 10:37] LABS: BUPRENORPHINE SCREEN,URINE NEGATIVE (CUTOFF=10); METHADONE SCREEN, URINE NEGATIVE (CUT0FF=200); METHAMPHETAMINES SCREEN, URINE NEGATIVE (CUTOFF=500); OXYCODONE SCREEN,URINE NEGATIVE (CUT0FF=100); THC SCREEN,URINE 20 NG/ML NEGATIVE (CUTOFF=50)
[2025-07-07 10:38] LABS: AMPHETAMINES SCREEN, URINE NEGATIVE (CUTOFF=500)
[2025-07-07 11:12] VITALS: BP 146/89; PULSE 67
== END 2025-07-07 11:13 | disposition home or self-care (01) ==
LOC: JD.ED 08:11
DX: K70.30 Alcoholic cirrhosis of liver without ascites (principal); F10.10 Alcohol abuse, uncomplicated; I10 Essential (primary) hypertension; Z88.5 Allergy status to narcotic agent; Z79.899 Other long term (current) drug therapy; Z86.16 Personal history of COVID-19; Y90.9 Presence of alcohol in blood, level not specified
CPT/HCPCS: 36415; 80053; 80306; 80307; 82140; 82550; 83690; 83735; 85025; 85610; 96365; 96375; 99284; A9270; J2405; J3475; J7030

== ENCOUNTER 2025-07-08 20:56 | Emergency (ER) | payer MEDICAID ==
[2025-07-08] MEDS: cefTRIAXone 1 GM, Lidocaine 1% 2.1 ML IM ONE (21:43)
[2025-07-08 22:07] VITALS: BP 140/89; PULSE 61
== END 2025-07-08 21:50 | disposition home or self-care (01) ==
LOC: JD.ED 20:56
DX: K04.7 Periapical abscess without sinus (principal); I10 Essential (primary) hypertension; Z88.5 Allergy status to narcotic agent; Z86.16 Personal history of COVID-19; Z90.49 Acquired absence of other specified parts of digestive tract
CPT/HCPCS: 96372; 99282; J0696; J2003; 99284